=== PATIENT | male | born 1935 | race Caucasian/White ===

== ENCOUNTER 2019-08-19 04:28 | Emergency (ER) | payer MEDICARE, OTHER ==
--- NOTE | 2019-08-19 04:57 | EDM.PDOC ---
ED HPI GENERAL MEDICAL PROBLEM - General Chief Complaint: General Stated Complaint: nosebleed Time Seen by Provider: 08/19/19 04:30 Source of Information: Reports: Patient, RN History Limitations: Reports: Physical Impairment - History of Present Illness INITIAL COMMENTS - FREE TEXT/NARRATIVE: Patient is a 84-year-old who is seen in the ER with nasal bleeding started around 11 PM on 08/18/19 at that time his left nostril was packed with a patent bronchus and he slept for about 2 hours they removed a tampon and he started bleeding so they repacked it and this started to expand but wasn't really controlling the bleeding site to bring him into the ER Onset: Sudden Duration: Hour(s):, Getting Worse Location: Reports: Face (Nose left nostril) Quality: Reports: Ache, Dull Severity: Moderate Improves with: Reports: Other (Nasal packing) Worsens with: Reports: Other (Removal of pack) Context: Reports: Other (Blowing his nose) Associated Symptoms: Reports: No Other Symptoms - Related Data Allergies Allergy/AdvReac Type Severity Reaction Status Date / Time No Known Allergies Allergy Verified 12/10/18 14:48 Home Meds: Home Meds Acetaminophen [Pain Reliever] 500 mg PO Q4HR PRN 08/19/19 [History] Amoxicillin 500 mg PO ASDIRECTED 08/19/19 [History] Aspirin 325 mg PO DAILY 08/19/19 [History] Carbidopa/Levodopa [Carbidopa-Levo ER 25-100] 1 each PO BID 08/19/19 [History] Cyanocobalamin (Vitamin B-12) [Vitamin B-12] 1,000 mcg PO DAILY 08/19/19 [ History] Ferrous Gluconate 240 mg PO ASDIRECTED 08/19/19 [History] Lisinopril 5 mg PO DAILY 08/19/19 [History] Melatonin 3 mg PO BEDTIME 08/19/19 [History] Polyethylene Glycol 3350 [MiraLAX] 17 gm PO DAILY PRN 08/19/19 [History] Potassium Chloride 20 meq PO DAILY 08/19/19 [History] Pyridoxine HCl [Vitamin B-6] 100 mg PO DAILY 08/19/19 [History] Ubidecarenone [Coq-10] 100 mg PO DAILY 08/19/19 [History] atorvaSTATin Calcium [Lipitor] 20 mg PO DAILY 08/19/19 [History] ED ROS GENERAL - Review of Systems Review Of Systems: See Below Constitutional: Reports: No Symptoms HEENT: Reports: Nosebleed, Nose Pain Respiratory: Reports: No Symptoms Cardiovascular: Reports: No Symptoms Endocrine: Reports: No Symptoms GI/Abdominal: Reports: No Symptoms : Reports: No Symptoms Musculoskeletal: Reports: No Symptoms Skin: Reports: No Symptoms Neurological: Reports: No Symptoms ED EXAM, GENERAL - Physical Exam Exam: See Below Exam Limited By: Physical Impairment (Parkinson's disease) General Appearance: Alert, WD/WN, Anxious, Mild Distress Ears: Normal External Exam, Normal Canal, Hearing Grossly Normal, Normal TMs Ear Exam: Bilateral Ear: Auricle Normal, Canal Normal, TM normal Nose: Other (Nasal bleeding left nostril) Throat/Mouth: Normal Inspection, Normal Lips, Normal Teeth, Normal Gums, Normal Oropharynx, Normal Voice, No Airway Compromise Head: Atraumatic, Normocephalic Neck: Normal Inspection, Supple, Non-Tender, Full Range of Motion Respiratory/Chest: Decreased Breath Sounds Cardiovascular: Normal Peripheral Pulses, Regular Rate, Rhythm, No Edema, No Gallop, No JVD, No Rub, Systolic Murmur GI/Abdominal: Normal Bowel Sounds, Soft, Non-Tender, No Organomegaly, No Distention, No Abnormal Bruit, No Mass Back Exam: Normal Inspection, Full Range of Motion, NT Neurological: Normal Cognition, Abnormal Gait (Parkinson's gait) Psychiatric: Normal Affect, Normal Mood Skin Exam: Warm, Dry, Intact, Normal Color, No Rash Lymphatic: No Adenopathy Course - Orders/Labs/Meds Orders: Active Orders 24 hr Category Date Time Status CBC WITH AUTO DIFF [HEME] Stat Lab 08/19/19 04:47 Ordered CMP [COMPREHENSIVE METABOLIC PN,CMP] [CHEM] Stat Lab 08/19/19 04:46 Ordered INR,PT,PROTHROMBIN TIME [COAG] Stat Lab 08/19/19 04:47 Ordered INR,PT,PROTHROMBIN TIME [COAG] Stat Lab 08/19/19 04:48 Stop Req Departure - Departure Time of Disposition: 05:06 Disposition: Home, Self-Care 01 Condition: Fair Clinical Impression: Bleeding from the nose - Discharge Information *PRESCRIPTION DRUG MONITORING PROGRAM REVIEWED*: No *COPY OF PRESCRIPTION DRUG MONITORING REPORT IN PATIENT SOPHIE: No Referrals: Kathy Ibrahim PA-C [Primary Care Provider] - Care Plan Goals: At this time we removed the pack and placed a Rhino Rocket patient tolerated well inflated bleeding controlled at this time we will leave the Rhino Rocket for about 24 hours then remove it and if bleeding bleeding start is to examine him and cauterize the bleed patient is to follow-up with Dr. beltran tomorrow - My Orders Last 24 Hours: My Active Orders 08/19/19 04:46 CMP [COMPREHENSIVE METABOLIC PN,CMP] [CHEM] Stat 08/19/19 04:47 CBC WITH AUTO DIFF [HEME] Stat INR,PT,PROTHROMBIN TIME [COAG] Stat 08/19/19 04:48 INR,PT,PROTHROMBIN TIME [COAG] Stat - Assessment/Plan Last 24 Hours: My Active Orders 08/19/19 04:46 CMP [COMPREHENSIVE METABOLIC PN,CMP] [CHEM] Stat 08/19/19 04:47 CBC WITH AUTO DIFF [HEME] Stat INR,PT,PROTHROMBIN TIME [COAG] Stat 08/19/19 04:48 INR,PT,PROTHROMBIN TIME [COAG] Stat
[2019-08-19 05:10] LABS: CHLORIDE,CL 106 mmol/L (98-107); SODIUM,NA 142 mmol/L (136-145)
== END 2019-08-19 06:10 | disposition home or self-care (01) ==
LOC: LL.ED 04:28
DX: R04.0 Epistaxis (principal); Z79.82 Long term (current) use of aspirin; Z79.899 Other long term (current) drug therapy
CPT/HCPCS: 30903; 36415; 80053; 85025; 85610; 99283-25

== ENCOUNTER 2020-06-12 02:48 | Emergency (ER) | payer MEDICARE, OTHER ==
--- NOTE | 2020-06-12 03:32 | EDM.PDOC ---
ED HPI GENERAL MEDICAL PROBLEM - General Chief Complaint: General Stated Complaint: fall, right shoulder pain Time Seen by Provider: 06/12/20 03:10 Source of Information: Reports: Patient History Limitations: Reports: No Limitations - History of Present Illness INITIAL COMMENTS - FREE TEXT/NARRATIVE: He was seen in the emergency department after a fall in his home. He states he walks with the help of furniture and slipped and fell, landing on his right side. Injury was about 1 hour prior to arrival. He did hit his head and had some bleeding from the right forehead which was closed with Steri-Strips at the [facility]. He denies any loss of consciousness. No dizziness or lightheadedness. No changes in his vision. No nausea or vomiting. He is complaining of 6/10 pain in the anterior aspect of his right shoulder. Increased pain with movement of the right arm. Pain is mainly in the anterior aspect of the shoulder. No pain radiating down the arm. No numbness or tingling in the fingers. He had rotator cuff surgery on that shoulder about 3 years ago. He is also complaining of pain in the right hip, more in the lateral aspect. Increased pain with weightbearing but he is able to bear weight. No pain radiating down the leg. No pain in the anterior hip or groin. He denies any other injury. right shoulder Pain Score (Numeric/FACES): 6 - Related Data Allergies Allergy/AdvReac Type Severity Reaction Status Date / Time No Known Allergies Allergy Verified 06/12/20 02:49 Home Meds: Home Meds Acetaminophen [Pain Reliever] 500 mg PO Q4HR PRN 08/19/19 [History] Amoxicillin 500 mg PO ASDIRECTED 08/19/19 [History] Aspirin 325 mg PO DAILY 08/19/19 [History] Carbidopa/Levodopa [Carbidopa-Levo ER 25-100] 1 each PO BID 08/19/19 [History] Cyanocobalamin (Vitamin B-12) [Vitamin B-12] 1,000 mcg PO DAILY 08/19/19 [History] Ferrous Gluconate 240 mg PO ASDIRECTED 08/19/19 [History] Melatonin 3 mg PO BEDTIME 08/19/19 [History] Potassium Chloride 20 meq PO DAILY 08/19/19 [History] Pyridoxine HCl (Vitamin B6) [Vitamin B-6] 100 mg PO DAILY 08/19/19 [History] Ubidecarenone [Coq-10] 100 mg PO DAILY 08/19/19 [History] atorvaSTATin Calcium [Lipitor] 20 mg PO DAILY 08/19/19 [History] lisinopriL [Lisinopril] 5 mg PO DAILY 08/19/19 [History] polyethylene glycoL 3350 [MiraLAX] 17 gm PO DAILY PRN 08/19/19 [History] Clotrimazole [Lotrimin AF 1% Crm] 1 applic TOP BID 06/12/20 [History] Ipratropium/Albuterol Sulfate [Iprat-Albut 0.5-3(2.5) mg/3 ml] 3 ml IH Q6HR PRN 06/12/20 [History] Non-Formulary Medication [NF Drug] 1 cap PO TID 06/12/20 [History] Past Medical History HEENT History: Reports: Allergic Rhinitis, Cataract, Epistaxis Cardiovascular History: Reports: Angina, CAD, Heart Murmur, Hypertension, [place] Musculoskeletal History: Reports: Arthritis Neurological History: Reports: Parkinson's Psychiatric History: Reports: Anxiety Hematologic History: Reports: Anemia Other Hematologic History: Thrombocytopenia - Past Surgical History Musculoskeletal Surgical History: Reports: Knee Replacement, Shoulder Surgery Other Musculoskeletal Surgeries/Procedures:: right rotator cuff, left knee replacement Social & Family History - Tobacco Use Smoking Status *Q: Never Smoker - Caffeine Use Caffeine Use: Reports: Coffee - Recreational Drug Use Recreational Drug Use: No ED ROS GENERAL - Review of Systems Review Of Systems: See Below Constitutional: Denies: Fever, Chills HEENT: Denies: Ear Discharge, Ear Pain, Eye Pain, Nosebleed, Sinus Problem, Throat Pain, Vision Change Respiratory: Denies: Shortness of Breath, Cough Cardiovascular: Denies: Chest Pain, Lightheadedness, Palpitations Endocrine: Denies: Fatigue GI/Abdominal: Denies: Abdominal Pain, Nausea, Vomiting Musculoskeletal: Reports: Shoulder Pain (right), Other (right hip pain). Denies: Neck Pain Skin: Reports: Lesions (laceration right eyebrow) Neurological: Denies: Confusion, Dizziness, Headache, Numbness, Paresthesia, Tingling, Change in Speech Psychiatric: Denies: Agitation, Anxiety, Confusion Hematologic/Lymphatic: Denies: Anemia Immunologic: Reports: No Symptoms ED EXAM, GENERAL - Physical Exam Exam: See Below Exam Limited By: No Limitations General Appearance: Alert, WD/WN, No Apparent Distress Eye Exam: Bilateral Eye: Normal Inspection, PERRL Ears: Normal External Exam, Normal Canal, Hearing Grossly Normal, Normal TMs Nose: Normal Inspection, No Blood Head: Normocephalic, Other (Superficial laceration over the right eyebrow which is been closed with Steri-Strips. No surrounding swelling or significant tenderness. Otherwise atraumatic.) Neck: Normal Inspection, Non-Tender Extremities: Other (Right shoulder: No swelling or deformity. No discoloration. Moderate tenderness over the anterior aspect. No other tenderness. No palpable defect. Passive range of motion 0 to 150 degrees in flexion and abduction with pain in the extremes. Negative impingement. Mild pain but no real weakness with resisted external rotation. Left shoulder: No swelling, deformity or discoloration. No tenderness. Range of motion 0 to 160 degrees without pain. Negative impingement. Right hip: No swelling or deformity. Mild tenderness in the lateral aspect. No other tenderness. Decreased range of motion in all directions but no significant pain with movement. Left hip: No swelling or deformity. No tenderness. Decreased range of motion in all directions but no pain with movement.) Neurological: Alert, Oriented, CN II-XII Intact, No Motor/Sensory Deficits Psychiatric: Normal Affect, Normal Mood Skin Exam: Other (Laceration right eyebrow closed with Steri-Strips. No bleeding.) Course - Vital Signs Last Recorded V/S: Last Vital Signs Temp 36.1 C 06/12/20 02:50 Pulse 55 L 06/12/20 02:50 Resp 18 06/12/20 02:50 BP 148/66 H 06/12/20 02:50 Pulse Ox 100 06/12/20 02:50 - Orders/Labs/Meds Orders: Active Orders 24 hr Category Date Time Status Hip Min 2V or 3V w Pelvis Rt [CR] Stat Exams 06/12/20 03:17 Ordered Shoulder Comp Rt [CR] Stat Exams 06/12/20 03:16 Ordered - Radiology Interpretation Free Text/Narrative:: 3 views of the right shoulder. Findings: Status post total shoulder replacement. Components are well seated in good position. No fracture or other acute process. 3 views of the right hip: Findings: Significant degenerative changes with joint space narrowing. No fractures or other acute process. Departure - Departure Time of Disposition: 04:10 Disposition: DC/Tfer to [facility] Condition: Good Clinical Impression: Contusion of shoulder, right, Contusion of hip, right, Laceration of eyebrow, right - Discharge Information *PRESCRIPTION DRUG MONITORING PROGRAM REVIEWED*: No *COPY OF PRESCRIPTION DRUG MONITORING REPORT IN PATIENT SOPHIE: No Instructions: Laceration Care, Adult, How to Use Cold Therapy, [id number] Referrals: Kathy Ibrahim PA-C [Primary Care Provider] - Additional Instructions: Apply ice to the shoulder and hip for 15 minutes 3-4 times daily. Frequent nonpainful range of motion in the shoulder and hip. Monitor for any signs of infection around the laceration. Monitor for signs of closed head injury which were explained. Tylenol as needed for pain. Follow-up as needed. Sepsis Event Note (ED) - Evaluation Sepsis Screening Result: No Definite Risk - Focused Exam Vital Signs: Vital Signs Temp Pulse Resp BP Pulse Ox 06/12/20 02:50 36.1 C 55 L 18 148/66 H 100 - My Orders Last 24 Hours: My Active Orders 06/12/20 03:16 Shoulder Comp Rt [CR] Stat 06/12/20 03:17 Hip Min 2V or 3V w Pelvis Rt [CR] Stat - Assessment/Plan Last 24 Hours: My Active Orders 06/12/20 03:16 Shoulder Comp Rt [CR] Stat 06/12/20 03:17 Hip Min 2V or 3V w Pelvis Rt [CR] Stat
== END 2020-06-12 04:33 ==
LOC: LL.ED 02:48
DX: S01.111A Laceration without foreign body of right eyelid and periocular area, initial encounter (principal); S40.011A Contusion of right shoulder, initial encounter; S70.01XA Contusion of right hip, initial encounter; I10 Essential (primary) hypertension; I25.10 Atherosclerotic heart disease of native coronary artery without angina pectoris; I25.2 Old myocardial infarction; M19.90 Unspecified osteoarthritis, unspecified site; F41.9 Anxiety disorder, unspecified; D69.6 Thrombocytopenia, unspecified; Z79.82 Long term (current) use of aspirin; Z79.899 Other long term (current) drug therapy; W01.10XA Fall on same level from slipping, tripping and stumbling with subsequent striking against unspecified object, initial encounter; Y92.009 Unspecified place in unspecified non-institutional (private) residence as the place of occurrence of the external cause
CPT/HCPCS: 73030-RT; 99283-25

== ENCOUNTER 2020-07-12 07:04 | Emergency (ER) | payer MEDICARE, OTHER ==
[2020-07-12] MEDS ORDERED: Phenylephrine 0.5% Nasal Spray 15 ML Bot NASBOTH ONE (07:40)
[2020-07-12] MEDS ORDERED: cloNIDine 0.1 MG Tab PO ONE (08:03)
--- NOTE | 2020-07-12 09:18 | EDM.PDOC ---
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 - Related Data Allergies Allergy/AdvReac Type Severity Reaction Status Date / Time No Known Allergies Allergy Verified 07/12/20 07:20 Home Meds: Home Meds Acetaminophen [Pain Reliever] 500 mg PO Q4HR PRN 08/19/19 [History] Amoxicillin 500 mg PO ASDIRECTED 08/19/19 [History] Aspirin 325 mg PO DAILY 08/19/19 [History] Carbidopa/Levodopa [Carbidopa-Levo ER 25-100] 1 each PO BID 08/19/19 [History] Cyanocobalamin (Vitamin B-12) [Vitamin B-12] 1,000 mcg PO DAILY 08/19/19 [History] Ferrous Gluconate 240 mg PO Q2D 08/19/19 [History] Melatonin 3 mg PO BEDTIME 08/19/19 [History] Potassium Chloride 20 meq PO DAILY 08/19/19 [History] Pyridoxine HCl (Vitamin B6) [Vitamin B-6] 100 mg PO DAILY 08/19/19 [History] Ubidecarenone [Coq-10] 100 mg PO DAILY 08/19/19 [History] atorvaSTATin Calcium [Lipitor] 20 mg PO DAILY 08/19/19 [History] lisinopriL [Lisinopril] 5 mg PO DAILY 08/19/19 [History] polyethylene glycoL 3350 [MiraLAX] 17 gm PO DAILY PRN 08/19/19 [History] Ipratropium/Albuterol Sulfate [Iprat-Albut 0.5-3(2.5) mg/3 ml] 3 ml IH Q6HR PRN 06/12/20 [History] Non-Formulary Medication [NF Drug] 1 cap PO TID 06/12/20 [History] Past Medical History HEENT History: Reports: Allergic Rhinitis, Cataract, Epistaxis, Other (See Below) Other HEENT History: hx of nose packing approximately 6 mths ago and H/O cautery x 2. Cardiovascular History: Reports: Angina, CAD, Heart Murmur, Hypertension, [place] Musculoskeletal History: Reports: Arthritis Neurological History: Reports: Parkinson's Psychiatric History: Reports: Anxiety Hematologic History: Reports: Anemia Other Hematologic History: Thrombocytopenia - Past Surgical History Musculoskeletal Surgical History: Reports: Knee Replacement, Shoulder Surgery Other Musculoskeletal Surgeries/Procedures:: right rotator cuff, left knee replacement Social & Family History - Tobacco Use Smoking Status *Q: Never Smoker Second Hand Smoke Exposure: No - Caffeine Use Caffeine Use: Reports: Coffee - Recreational Drug Use Recreational Drug Use: No ED ROS ENT - Review of Systems Review Of Systems: See Below HEENT: Reports: Other (Nose bleed) Respiratory: Reports: No Symptoms Cardiovascular: Reports: Chest Pain ED EXAM, ENT - Physical Exam Exam: See Below Nose: Other (Pt with minimal bleeding both nares) Mouth/Throat: Normal Inspection Course - Vital Signs Last Recorded V/S: Last Vital Signs Temp 96.9 F 07/12/20 07:04 Pulse 53 L 07/12/20 08:45 Resp 16 07/12/20 08:45 BP 157/89 H 07/12/20 08:45 Pulse Ox 98 07/12/20 08:45 - Orders/Labs/Meds Meds: Medications Discontinued Medications Generic Name Dose Route Start Last Admin Trade Name Tan PRN Reason Stop Dose Admin Clonidine HCl 0.1 mg 07/12/20 08:03 07/12/20 08:10 Catapres PO 07/12/20 08:04 0.1 mg ONETIME ONE Administration Phenylephrine HCl 0.5 ml 07/12/20 07:40 07/12/20 07:49 Ronnie-Synephrine 0.5% Regular Nasal [place] NASBOTH 07/12/20 07:41 0.5 ml ONETIME ONE Administration - Re-Assessments/Exams Free Text/Narrative Re-Assessment/Exam: 07/12/20 09:16 Pt given Ronnie-synephrine with resolution of bleeding Pt given Clonidine 0.1 mg PO in ER Departure - Departure Time of Disposition: 09:15 Disposition: Home, Self-Care 01 Clinical Impression: Bleeding nose - Discharge Information *PRESCRIPTION DRUG MONITORING PROGRAM REVIEWED*: Not Applicable *COPY OF PRESCRIPTION DRUG MONITORING REPORT IN PATIENT SOPHIE: Not Applicable Instructions: Nosebleed, [id number] Referrals: Kathy Ibrahim PA-C [Primary Care Provider] - Forms: ED Department Discharge Additional Instructions: HOLD Aspirin for 2 days then resume on 07/14/20 as ordered. Ronnie Sunephrine Nasal spray 2 sprays each nostril as needed if nosebleed occurs. No hot liquids today, encourage cool drinks. Encourage mouth breathing today. No blowing nose today or tomorrow. Reschedule dentist appointment that was today. Return to the ER/Clinic if condition worsens. Sepsis Event Note (ED) - Evaluation Sepsis Screening Result: No Definite Risk - Focused Exam Vital Signs: Vital Signs Temp Pulse Resp BP BP Pulse Ox 07/12/20 08:45 53 L 16 157/89 H 98 07/12/20 08:30 54 L 16 154/91 H 97 07/12/20 08:15 58 L 16 159/103 H 97 07/12/20 08:10 169/105 H 07/12/20 07:54 57 L 16 162/95 H 98 07/12/20 07:40 58 L 16 166/95 H 100 07/12/20 07:25 58 L 18 157/90 H 100 07/12/20 07:04 96.9 F 60 18 154/95 H 99
== END 2020-07-12 09:35 | disposition home or self-care (01) ==
LOC: LL.ED 07:04 → SUPCPDRO 07:04 → LL.ED 09:35
DX: R04.0 Epistaxis (principal); I10 Essential (primary) hypertension; I25.2 Old myocardial infarction; I25.10 Atherosclerotic heart disease of native coronary artery without angina pectoris; Z79.82 Long term (current) use of aspirin; Z79.899 Other long term (current) drug therapy
CPT/HCPCS: 99282; 99283; A9270-GY

== ENCOUNTER 2021-02-25 11:11 | Inpatient (IN) | payer MEDICARE, OTHER, MEDICAID ==
[2021-02-25] MEDS ORDERED: Famotidine 20 MG/2 ML SDV IVPUSH ONE (11:13)
--- NOTE | 2021-02-25 11:13 | EDM.PDOC ---
ED HPI GENERAL MEDICAL PROBLEM - General Chief Complaint: Cardiovascular Problem Stated Complaint: unresponsive Time Seen by Provider: 02/25/21 11:13 Source of Information: Reports: Patient, EMS, Retirement Records, Old Records ([facility] EMR. No paper hospital chart available.). Denies: EMS Notes Reviewed (Not available at time of dictation) History Limitations: Reports: Altered Mental Status - History of Present Illness INITIAL COMMENTS - FREE TEXT/NARRATIVE: The patient was brought to the emergency room via ambulance with maternity floor supervisor accompaniment with no treatment by the paramedics in route other than a stat Accu-Chek of 136 mg percent at the longterm prior to transfer to this facility. They also did take a 12-lead EKG, which was nonconclusive by their history. The maternity floor supervisor did continue his previous oxygen therapy by mask in route to our emergency room. Patient is an extremely poor historian secondary to his nonresponsiveness and baseline organic brain syndrome with only limited history and records obtained from the longterm. The patient was apparently eating breakfast at about 10:30 AM this morning when he had a sudden onset episode of unresponsiveness with the patient lowered to the floor by the longterm staff resulting in a small laceration of his left elbow, however no history of fall, head injury, seizure activity, urinary/stool incontinence, etc. They were unable to determine any blood pressure or pulse with AED applied with no shock indicated and chest compressions initiated by the longterm staff with pulse present at time of arrival of the paramedics. Initially the patient was unresponsive with exception of painful stimuli with slowly improving responsiveness during transport. No apparent recent history of chest pain, anginal complaints, abdominal pain, nausea/emesis, UTI symptoms, cough, fever, headaches, visual changes, etc., however the patient's mental status and general condition has been progressively declining during the last several weeks secondary to his Parkinson's disease. No apparent pain or discomfort at this time. Onset: Today, Sudden Onset Date: 02/25/21 Onset Time: 10:30 Duration: Improving (Responsiveness), Other (No pain) Severity: Severe (Unresponsiveness) Improves with: Reports: None Worsens with: Reports: None Context: Reports: Other (As above). Denies: Sick Contact, Trauma Associated Symptoms: Reports: Confusion, Malaise, Syncope. Denies: Chest Pain, Cough, Diaphoresis, Fever/Chills, Headaches, Loss of Appetite, Nausea/Vomiting, Rash, Seizure, Shortness of Breath, Weakness Treatments SNAP ATTACHER: Reports: EKG, Oxygen, See EMS Report - Related Data Allergies Allergy/AdvReac Type Severity Reaction Status Date / Time No Known Allergies Allergy Verified 02/25/21 12:24 Home Meds: Home Meds Amoxicillin 500 mg PO ASDIRECTED 08/19/19 [History] Carbidopa/Levodopa [Carbidopa-Levo ER 25-100] 1 each PO TID@08,13,16 08/19/19 [History] Ferrous Gluconate 240 mg PO Q2D 08/19/19 [History] Melatonin 3 mg PO BEDTIME 08/19/19 [History] Potassium Chloride 20 meq PO DAILY 08/19/19 [History] lisinopriL [Lisinopril] 5 mg PO DAILY 08/19/19 [History] polyethylene glycoL 3350 [MiraLAX] 17 gm PO DAILY PRN 08/19/19 [History] Ipratropium/Albuterol Sulfate [Iprat-Albut 0.5-3(2.5) mg/3 ml] 3 ml IH Q6HR PRN 06/12/20 [History] Aspirin [Aspirin EC] 1 tab PO DAILY 02/25/21 [History] Cod Liver Oil 2 cap PO TID 02/25/21 [History] Donepezil HCl 1 tab PO BEDTIME 02/25/21 [History] Furosemide [Lasix] 1 tab PO DAILY 02/25/21 [History] Levothyroxine [Synthroid] 1 tab PO DAILY 02/25/21 [History] Magnesium Oxide 1 tab PO DAILY 02/25/21 [History] Methyl Salicylate/Menthol [Muscle Rub] 1 applic TOP BID 02/25/21 [History] Phenylephrine [Ronnie-Synephrine 0.5% Regular Nasal Conway] 2 spray NASBOTH ASDIRECTED PRN 02/25/21 [History] Sertraline [Zoloft] 1 tab PO DAILY 02/25/21 [History] Sodium Chloride/Aloe Vera [Minier Saline Nasal Gel Conway] 2 spray NASBOTH BID PRN 02/25/21 [History] Ubidecarenone [Coenzyme Q-10] 1 cap PO DAILY 02/25/21 [History] Past Medical History HEENT History: Reports: Allergic Rhinitis, Cataract, Epistaxis, Glaucoma, Other (See Below) Other HEENT History: Bilateral upper lid ptosis. History of recurrent epistaxis requiring cauterization and nasal packing. Cardiovascular History: Reports: Angina, CAD, Heart Murmur, High Cholesterol, Hypertension, MA, PVD, Other (See Below) Other Cardiovascular History: Left carotid artery stenosis/occlusion Respiratory History: Reports: COPD, Intubation, Previous, Sleep Apnea. Denies: Intubation, Difficult Gastrointestinal History: Reports: Chronic Constipation Genitourinary History: Reports: BPH, Urinary Incontinence Musculoskeletal History: Reports: Arthritis Neurological History: Reports: Parkinson's, Other (See Below). Denies: Seizure Other Neuro History: Generalized cerebral atrophy with mild chronic small vessel disease. Progressive parkinsonian dementia with hallucinations and amnesia. Insomnia. Psychiatric History: Reports: Anxiety, Dementia, Depression, Hallucinations, Suicide Attempt, Suicidal Ideation, Other (See Below) Other Psychiatric History: Progressive probable Parkinson's dementia. Endocrine/Metabolic History: Reports: Diabetes, Type II, Hypokalemia, Hypomagnesemia, Hypothyroidism, Other (See Below) Other Endocrine/Metabolic History: Hyperglycemia. Hematologic History: Reports: Anemia, B12 Deficiency, Idiopathic Thrombocytopenia, Iron Deficiency Oncologic (Cancer) History: Reports: Other (See Below) Other Oncologic History: Skin cancer of unknown type. Dermatologic History: Reports: Other (See Below) Other Dermatologic History: Rosacea. Chronic ecchymosis secondary to ITP. - Past Surgical History HEENT Surgical History: Reports: Oral Surgery, Other (See Below) Other HEENT Surgeries/Procedures: Complete teeth extraction Cardiovascular Surgical History: Reports: Coronary Artery Bypass, Coronary Artery Stent, Percutaneous Transluminal Angioplasty Musculoskeletal Surgical History: Reports: Knee Replacement, Shoulder Replacement, Shoulder Surgery Other Musculoskeletal Surgeries/Procedures:: Right rotator cuff repair with subsequent right shoulder arthroplasty. Left TKA. - Past Imaging History Past Imaging History: Reports: CAT Scan (Head on 01/28/2021.) Social & Family History - Family History Family Medical History: Unobtainable - Tobacco Use Tobacco Use Status *Q: Never Tobacco User Tobacco Use Within Last Twelve Months: No Used Tobacco, but Quit: No Smoking Cessation Information Provided To Patient: No Second Hand Smoke Exposure: No Second Hand Smoke Education Provided: No - Caffeine Use Caffeine Use: Reports: Coffee - Living Situation & Occupation Living situation: Reports: ( also at [facility] in [place]), Extended Care Facility ([facility] in [facility]) Occupation: Retired ED ROS GENERAL - Review of Systems Review Of Systems: Unable To Obtain Reason Not Obtained: As per HPI ED EXAM, GENERAL - Physical Exam Exam: See Below Exam Limited By: Altered Mental Status General Appearance: Lethargic, Other (Slowly improved responsiveness to verbal stimuli however does not completely follow instructions of opening his eyes) Eye Exam: Bilateral Eye: EOMI (Grossly normal with no deviation), Normal Fundi (Exam difficult secondary to miosis), PERRL (Moderate to severe myosis), Other (Mild bilateral upper lid ptosis) Ears: Normal External Exam, Normal Canal, Hearing Grossly Normal (Difficult to assess secondary to unresponsiveness), Normal TMs, Other (Impacted cerumen right EAC) Nose: Normal Inspection, Normal Mucosa, No Blood Throat/Mouth: Normal Lips, Normal Gums, Normal Oropharynx, Normal Voice, No Airway Compromise, Other (No tongue injury/biting). No: Normal Teeth (Complete dentures uppers and lowers), Dysphagia, Perioral Cyanosis Head: Atraumatic, Normocephalic. No: Facial Swelling, Facial Tenderness, Sinus Tenderness Neck: Supple, Non-Tender, Full Range of Motion, Carotid Bruit (Moderate bilateral carotid bruits). No: Lymphadenopathy (L), Lymphadenopathy (R), Thyromegaly Respiratory/Chest: No Respiratory Distress, No Accessory Muscle Use, Chest Non- Tender, Rales (Moderate diffuse bilateral). No: Rhonchi, Wheezing, Pleural Rub, Retractions Cardiovascular: Normal Peripheral Pulses, Regular Rate, Rhythm, No Edema, No Gallop, No JVD, No Murmur, No Rub, Bradycardia (Occasional). No: Gallop/S3, Gallop/S4, Extra Beats (None at time of exam), Friction Rub Peripheral Pulses: 2+: Brachial (L), Brachial (R), Dorsalis Pedis (L), Dorsalis Pedis (R) GI/Abdominal: Normal Bowel Sounds, Soft, Non-Tender, No Organomegaly, No Distention, No Abnormal Bruit, No Mass, Pelvis Stable. No: Guarding (Male) Exam: Deferred Rectal (Males) Exam: Deferred Back Exam: Normal Inspection, Full Range of Motion. No: CVA Tenderness (L), CVA Tenderness (R), Muscle Spasm Extremities: Normal Range of Motion, Non-Tender, No Pedal Edema, Normal Capillary Refill, Other (Small 1-2 cm laceration over the left olecranon with no evidence of fracture, dislocation, etc.). No: Pedal Edema, Steven's Sign Neurological: Unresponsive (Slowly improving as above), Other (Negative Babinski's. Patient unable to perform neurological exam. Moderate resting tremor with severe rigidity and cogwheeling) Psychiatric: Other (Unresponsive as above) Skin Exam: Ecchymosis (Multiple on all extremities), Petechiae (Occasional), Wound/Incision (Left elbow laceration as above), Other (Multiple areas of probable actinic keratosis on his arms bilaterally, facial region, auricles, etc.) Lymphatic: No Adenopathy #1 Interpretation EKG Date: 02/25/21 Time: 11:19 Rhythm: NSR Rate (Beats/Min): 61 [place]: LAD-Left [place] Deviation P-Wave: Enlarged (Moderate diffuse biphasic) QRS: RBBB (0.19 seconds) ST-T: Other (T wave inversions in leads V1 through V4) QT: Normal WV/PQ Interval: 0.25 seconds representing a first-degree AV block Comparison: NA - No Prior EKG EKG Interpretation Comments: 1. Anterior wall cardiac ischemia 2. Complete right bundle branch block 3. First-degree AV block 4. Left atrial enlargement Course - Vital Signs Last Recorded V/S: Last Vital Signs Temp 35.3 C L 02/25/21 13:59 Pulse 50 L 02/25/21 13:59 Resp 14 02/25/21 13:59 BP 123/77 02/25/21 13:59 Pulse Ox 99 02/25/21 13:59 Vital Signs - 24 hr 02/25/21 02/25/21 02/25/21 11:15 11:30 11:45 Temperature [ 35.3 C L Temporal] Pulse, 60 58 L 59 L Peripheral [ Right Pulse Oximetry] Respiratory 14 14 14 Rate Blood Pressure 119/80 121/77 128/77 [Left Upper Arm ] O2 Sat by Pulse 100 99 99 Oximetry 02/25/21 02/25/21 02/25/21 12:00 12:30 13:59 Temperature [ 35.3 C L Temporal] Pulse, 59 L 58 L 50 L Peripheral [ Right Pulse Oximetry] Respiratory 14 14 14 Rate Blood Pressure 124/73 107/65 123/77 [Left Upper Arm ] O2 Sat by Pulse 99 98 99 Oximetry - Orders/Labs/Meds Orders: Active Orders 24 hr Category Date Time Status Cardiac Monitoring [RC] . DIRECTED Care 02/25/21 11:13 Active EKG Documentation Completion [RC] ASDIRECTED Care 02/25/21 11:13 Active Oxygen Therapy, ED [RC] CONTINUOUS Care 02/25/21 11:13 Active Peripheral IV Care [RC] . DIRECTED Care 02/25/21 11:13 Active Peripheral IV Care [RC] . DIRECTED Care 02/25/21 11:20 Active Pulse Oximetry [RC] CONTINUOUS Care 02/25/21 11:13 Active Up With Assistance [RC] PFP Care 02/25/21 11:13 Active Vital Signs [RC] PFP Care 02/25/21 11:13 Active Nothing per Oral Now Diet [DIET] Diet 02/25/21 Breakfast Active Chest 1V Frontal [CR] Stat Exams 02/25/21 11:13 Taken Chest PE [Ang Chest] [CT] Stat Exams 02/25/21 12:11 Taken Head wo Cont [CT] Stat Exams 02/25/21 11:21 Taken CULTURE BLOOD [BC] Stat Lab 02/25/21 11:30 Received CULTURE BLOOD [BC] Stat Lab 02/25/21 13:26 Received Sodium Chloride 0.9% [Saline Flush] Med 02/25/21 11:13 Active 10 ml FLUSH ASDIRECTED PRN Sodium Chloride 0.9% [Saline Flush] Med 02/25/21 11:19 Active 10 ml FLUSH ASDIRECTED PRN Blood Culture x2 Reflex Set [OM.PC] Urgent Oth 02/25/21 13:17 Ordered Obtain Past Medical Record [OM.PC] Urgent Oth 02/25/21 11:13 Active Peripheral IV Insertion Adult [OM.PC] Routine Oth 02/25/21 11:19 Ordered Peripheral IV Insertion Adult [OM.PC] Stat Oth 02/25/21 11:13 Ordered Resuscitation Status Stat Resus Stat 02/25/21 12:25 Ordered Medication Orders Sodium Chloride (Sodium Chloride 0.9% 10 Ml Syringe) 10 ml FLUSH ASDIRECTED PRN PRN Reason: Keep Vein Open Last Admin: 02/25/21 12:42 Dose: 10 ml Documented by: ARCELIA Sodium Chloride (Sodium Chloride 0.9% 10 Ml Syringe) 10 ml FLUSH ASDIRECTED PRN PRN Reason: Keep Vein Open Labs: Laboratory Tests 02/25/21 02/25/21 02/25/21 Range/Units 11:30 11:30 11:30 WBC 3.7 L (4.0-10.2) K/uL RBC 3.99 L (4.33-5.41) M/uL Hgb 11.8 L (13.1-16.8) g/dL Hct 37.1 L (39.0-49.0) % MCV 93.0 D (84.0-98.0) fL MCH 29.6 (28.2-33.3) pg MCHC 31.8 (31.7-36.0) g/dL RDW 16.7 H (11.2-14.1) % Plt Count 79 L (150-350) K/uL Neut % (Auto) 77.2 (45.0-80.0) % Lymph % (Auto) 14.1 (10.0-50.0) % Woodruff % (Auto) 4.9 (2.0-14.0) % Eos % (Auto) 3.5 (0.0-5.0) % Baso % (Auto) 0.3 (0.0-2.0) % Neut # (Auto) 2.85 (1.40-7.00) K/uL Lymph # (Auto) 0.52 (0.50-3.50) K/uL Woodruff # (Auto) 0.18 (0.00-1.00) K/uL Eos # (Auto) 0.13 (0.00-0.50) K/uL Baso # (Auto) 0.01 (0.00-0.20) K/uL PT 11.7 (9.5-12.0) SEC INR 1.2 APTT 28.1 (24.5-32.8) SEC D-Dimer, Quantitative 2670 H (0-400) ng/mL Sodium (136-145) mmol/L Potassium (3.5-5.1) mmol/L Chloride (98-107) mmol/L Carbon Dioxide (21.0-32.0) mmol/L BUN (7-18) mg/dL Creatinine (0.51-1.17) mg/dL Est Cr Clr Drug Dosing Estimated GFR (MDRD) mL/min Glucose (70-99) mg/dL Lactic Acid (0.4-2.0) mmol/L Uric Acid (2.6-7.2) mg/dL Calcium (8.5-10.1) mg/dL Magnesium (1.8-2.4) mg/dL Total Bilirubin (0.2-1.0) mg/dL AST (15-37) U/L ALT (12-78) U/L Alkaline Phosphatase (46-116) IU/L Creatine Kinase (26-308) U/L Creatine Kinase Index (0.0-2.5) % CK-MB (CK-2) (0.00-3.60) ng/mL Troponin I (0.000-0.056) ng/mL NT-Pro-B Natriuret Pep (0-125) pg/mL Total Protein (6.4-8.2) g/dL Albumin (3.4-5.0) g/dL TSH, Ultra Sensitive (0.358-3.740) mIU/mL SARS-CoV-2 RNA (MERLYN) (NEGATIVE) 02/25/21 02/25/21 02/25/21 Range/Units 11:30 11:30 11:30 WBC (4.0-10.2) K/uL RBC (4.33-5.41) M/uL Hgb (13.1-16.8) g/dL Hct (39.0-49.0) % MCV (84.0-98.0) fL MCH (28.2-33.3) pg MCHC (31.7-36.0) g/dL RDW (11.2-14.1) % Plt Count (150-350) K/uL Neut % (Auto) (45.0-80.0) % Lymph % (Auto) (10.0-50.0) % Woodruff % (Auto) (2.0-14.0) % Eos % (Auto) (0.0-5.0) % Baso % (Auto) (0.0-2.0) % Neut # (Auto) (1.40-7.00) K/uL Lymph # (Auto) (0.50-3.50) K/uL Woodruff # (Auto) (0.00-1.00) K/uL Eos # (Auto) (0.00-0.50) K/uL Baso # (Auto) (0.00-0.20) K/uL PT (9.5-12.0) SEC INR APTT (24.5-32.8) SEC D-Dimer, Quantitative (0-400) ng/mL Sodium 139 (136-145) mmol/L Potassium 3.8 (3.5-5.1) mmol/L Chloride 102 (98-107) mmol/L Carbon Dioxide 24.9 (21.0-32.0) mmol/L BUN 35 H (7-18) mg/dL Creatinine 1.03 (0.51-1.17) mg/dL Est Cr Clr Drug Dosing TNP Estimated GFR (MDRD) > 60 mL/min Glucose 139 H (70-99) mg/dL Lactic Acid 6.6 H (0.4-2.0) mmol/L Uric Acid 6.1 (2.6-7.2) mg/dL Calcium 9.3 (8.5-10.1) mg/dL Magnesium 1.9 (1.8-2.4) mg/dL Total Bilirubin 0.8 (0.2-1.0) mg/dL AST 77 H (15-37) U/L ALT 31 (12-78) U/L Alkaline Phosphatase 289 H (46-116) IU/L Creatine Kinase 41 (26-308) U/L Creatine Kinase Index 8.3 H (0.0-2.5) % CK-MB (CK-2) 3.40 (0.00-3.60) ng/mL Troponin I 0.040 (0.000-0.056) ng/mL NT-Pro-B Natriuret Pep 5331 H (0-125) pg/mL Total Protein 7.5 (6.4-8.2) g/dL Albumin 2.7 L (3.4-5.0) g/dL TSH, Ultra Sensitive 5.164 H (0.358-3.740) mIU/mL SARS-CoV-2 RNA (MERLYN) Negative (NEGATIVE) Meds: Medications Generic Name Dose Route Start Last Admin Trade Name Freq PRN Reason Stop Dose Admin Sodium Chloride 10 ml 02/25/21 11:13 02/25/21 12:42 Sodium Chloride 0.9% 10 Ml Syringe FLUSH 10 ml ASDIRECTED PRN Administration Keep Vein Open Sodium Chloride 10 ml 02/25/21 11:19 Sodium Chloride 0.9% 10 Ml Syringe FLUSH ASDIRECTED PRN Keep Vein Open Discontinued Medications Generic Name Dose Route Start Last Admin Trade Name Michaelq PRN Reason Stop Dose Admin Ceftriaxone Sodium 2 gm 02/25/21 13:16 02/25/21 14:14 Ceftriaxone 2 Gm Vial IVPUSH 02/25/21 13:17 2 gm ONETIME ONE Administration Famotidine 40 mg 02/25/21 11:13 02/25/21 11:20 Famotidine 20 Mg/2 Ml Sdv IVPUSH 02/25/21 11:14 40 mg ONETIME ONE Administration Lactated Ringer's 1,000 mls @ 999 mls/hr 02/25/21 13:16 02/25/21 14:15 Ringers, Lactated IV 02/25/21 14:16 999 mls/hr .BOLUS ONE Administration Iopamidol 100 ml 02/25/21 12:30 02/25/21 12:42 Iopamidol 755 Mg/Ml 100 Ml Bottle IVPUSH 02/25/21 12:31 100 ml ONETIME ONE Administration - Radiology Interpretation Free Text/Narrative:: 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 Borderline left upper lobe pulmonary infiltrates with no pneumothorax, etc. Borderline pleural effusions noted, left greater than right. Telephone consultation at 12:04 PM with the radiology department at [facility]. Preliminary verbal report of noncontrast CT scan of the head showed no evidence of acute changes, including cerebral hemorrhage, CVA, etc. Telephone consultation at 1:09 PM with the radiology department at [facility]. Preliminary verbal report of CTA of the chest using PE protocol was negative for PE with incidental finding of probable CHF with small left pleural effusion and probable left upper lobe pulmonary infiltrates. CT Results Date: 02/25/21 CT Results Time: 12:04 Departure - Departure Time of Disposition: 14:50 Disposition: Admitted As Inpatient 66 Condition: Poor Clinical Impression: D-dimer, elevated, Complete right bundle branch block, Parkinsons disease, Need for comfort care, Chronic ITP (idiopathic thrombocytopenic purpura), Elevated L FTs, Hypothyroidism (acquired), Hypoalbuminemia, PVCs (premature ventricular contractions), First degree AV block, Lactic acid acidosis, Unresponsiveness CHF (congestive heart failure) Qualifiers: Heart failure type: unspecified Heart failure chronicity: acute Qualified Code(s): I50.9 - Heart failure, unspecified Leukopenia Qualifiers: Leukopenia type: neutropenia Neutropenia type: unspecified Qualified Code(s): D70.9 - Neutropenia, unspecified Anemia Qualifiers: Anemia type: unspecified type Qualified Code(s): D64.9 - Anemia, unspecified COPD (chronic obstructive pulmonary disease) Qualifiers: COPD type: COPD with acute lower respiratory infection Qualified Code(s): J44.0 - Chronic obstructive pulmonary disease with (acute) lower respiratory infection Sepsis Event Note (ED) - Focused Exam Vital Signs: Vital Signs Temp Pulse Resp BP Pulse Ox 02/25/21 13:59 35.3 C L 50 L 14 123/77 99 02/25/21 12:30 58 L 14 107/65 98 02/25/21 12:00 59 L 14 124/73 99 02/25/21 11:45 59 L 14 128/77 99 02/25/21 11:30 58 L 14 121/77 99 02/25/21 11:15 35.3 C L 60 14 119/80 100 - Problem List & Annotations (1) Unresponsiveness SNOMED Code(s): 306167870 Code(s): R41.89 - [facility] SYMPTOMS AND SIGNS W COGNITIVE FUNCTIONS AND AWARENESS Status: Acute Priority: High Current Visit: Yes Onset Date: 02/25/21 Annotation/Comment:: Initial telephone consultation at 1:11 PM with [facility]. Subsequent telephone consultation at 1:[address] Luu, who is willing to accept the patient, however he does not feel that they can offer him any advantages and care in their facility secondary to the family's current wishes of comfort care only. Various therapeutic options were discussed with the patient's and his brother, who are now requesting that the patient stay in this facility for comfort care. Period of unresponsiveness of unknown etiology with possible contributing factors, including threatening acute MA with CHF, bradycardia, etc. and additional possible CVA with negative initial CT of the head without contrast as above. Further work-up depending on his clinical course including possible MRI of the brain, which is not available in this facility until 02/28. Prognosis is extremely poor secondary to multiple health issues as above/below. Slow improvement of patient's unresponsiveness during his emergency room care as above with stable vital signs and clinical exam at time of admission. (2) Lactic acid acidosis SNOMED Code(s): 50468169 Code(s): E87.2 - ACIDOSIS Status: Acute Priority: High Current Visit: Yes Onset Date: 02/25/21 Annotation/Comment:: Sepsis protocol initiated including blood cultures x2 and aggressive IV fluids with 1 L IV bolus of LR initiated in the emergency room. Note possible left upper lobe pneumonia as below. Consider cath UA with urine culture and sensitivity by accepting providers depending on his clinical course. (3) Need for comfort care SNOMED Code(s): 668752466, 384392277 Code(s): RCL4845 - Status: Acute Priority: High Current Visit: Yes Onset Date: 02/25/21 Annotation/Comment:: The patient was initially designated as a full code. Extensive counseling with the patient's in the emergency room and also at 12:15 PM by telephone with the patient's daughter, Anastasiia, and his son, Berhane, by telephone at 12:20 PM. Various therapeutic options were discussed with all family members agreeing to place the patient in a no code/comfort care status at this time. No further extensive cardiac work-up, including heart catheterization, etc. per their request. Initially they did request that the patient be transferred to [facility] in [place], however the family has elected to keep the patient in this facility as above. (4) CHF (congestive heart failure) SNOMED Code(s): 15043503 Code(s): I50.9 - HEART FAILURE, UNSPECIFIED Status: Acute Priority: High Current Visit: Yes Onset Date: 02/25/21 Annotation/Comment:: No known previous history of CHF, although apparent previous history of acute MA. Note episode of unresponsiveness. IV Lasix therapy not initiated in the emergency room secondary to elevated lactic acid level and possible sepsis as above requiring aggressive IV fluids as per sepsis protocol. No further heart catheterization, echocardiogram, etc. per the family's request. Initiate st andard rule out MA orders. No ASA, Brilinta, etc. secondary to his significant thrombocytopenia. Qualifiers: Heart failure type: unspecified Heart failure chronicity: acute Qualified Code(s): I50.9 - Heart failure, unspecified (5) D-dimer, elevated SNOMED Code(s): 273788957 Code(s): R79.89 - OTHER SPECIFIED ABNORMAL FINDINGS OF BLOOD CHEMISTRY Status: Acute Priority: High Current Visit: Yes Onset Date: 02/25/21 Annotation/Comment:: CTA of the chest and head results as above. Further work- up depending on his clinical course, including possible venous Doppler studies of lower extremities, which is not available at this facility until 02/28. Note ITP with moderate thrombocytopenia at this time. (6) Complete right bundle branch block SNOMED Code(s): 008735658 Code(s): I45.10 - UNSPECIFIED RIGHT BUNDLE-BRANCH BLOCK Status: Acute Priority: High Current Visit: Yes Onset Date: 02/25/21 Annotation/Comment:: Not previously documented. Probable concomitant anterior wall cardiac ischemia with intermittent moderate bradycardia and newly diagnosed first-degree AV block (7) First degree AV block SNOMED Code(s): 749161319 Code(s): I44.0 - ATRIOVENTRICULAR BLOCK, FIRST DEGREE Status: Acute Priority: Medium Current Visit: Yes Onset Date: 02/25/21 Annotation/Comment:: Observe for now (8) Chronic ITP (idiopathic thrombocytopenic purpura) SNOMED Code(s): 90950360 Code(s): D69.3 - IMMUNE THROMBOCYTOPENIC PURPURA Status: Chronic Priority: High Current Visit: Yes Annotation/Comment:: Note moderate thrombocytopenia. Patient unable to swallow aspirin or Brilinta with chest pain protocol otherwise followed as above. (9) Elevated LFTs SNOMED Code(s): 897711112 Code(s): R79.89 - OTHER SPECIFIED ABNORMAL FINDINGS OF BLOOD CHEMISTRY Status: Acute Current Visit: Yes Annotation/Comment:: Mild LFTs elevation likely secondary to his CHF. Observe for now. (10) Hypoalbuminemia SNOMED Code(s): 250439927 Code(s): E88.09 - OTH DISORDERS OF PLASMA-PROTEIN METABOLISM, NEC Status: Acute Priority: Medium Current Visit: Yes Onset Date: 02/25/21 Annotation/Comment:: Observe for now (11) Hypothyroidism (acquired) SNOMED Code(s): 988572615 Code(s): E03.9 - HYPOTHYROIDISM, UNSPECIFIED Status: Chronic Priority: Medium Current Visit: Yes Annotation/Comment:: Consider adjustment of thyroid medication depending on his clinical course (12) PVCs (premature ventricular contractions) SNOMED Code(s): 95708988 Code(s): I49.3 - VENTRICULAR PREMATURE DEPOLARIZATION Status: Acute Priority: Medium Current Visit: Yes Onset Date: 02/25/21 Annotation/Comment:: Occasional. Observe for now. (13) Parkinsons disease SNOMED Code(s): 50904990 Code(s): G20 - PARKINSON'S DISEASE Status: Chronic Priority: High Current Visit: Yes Annotation/Comment:: Significantly progressive in recent weeks with the patient now electing for comfort care only. Note progressive parkinsonian dementia, etc. as above. (14) Anemia SNOMED Code(s): 237331956 Code(s): D64.9 - ANEMIA, UNSPECIFIED Status: Chronic Priority: Medium Current Visit: Yes Annotation/Comment:: Note chronic vitamin B12 and iron deficiency anemia with no evidence of acute GI bleed. IV Pepcid given as GI prophylaxis. Qualifiers: Anemia type: unspecified type Qualified Code(s): D64.9 - Anemia, unspecified (15) Leukopenia SNOMED Code(s): 10374323, 065243306 Code(s): D72.819 - DECREASED WHITE BLOOD CELL COUNT, UNSPECIFIED Status: Acute Priority: Medium Current Visit: Yes Onset Date: 02/25/21 Annotation/Comment:: No fever, however no possible left upper lobe pneumonia as above. Observe for now. Qualifiers: Leukopenia type: neutropenia Neutropenia type: unspecified Qualified Code(s): D70.9 - Neutropenia, unspecified (16) COPD (chronic obstructive pulmonary disease) SNOMED Code(s): 41003594 Code(s): J44.9 - CHRONIC OBSTRUCTIVE PULMONARY DISEASE, UNSPECIFIED Status: Acute Priority: High Current Visit: Yes Onset Date: 02/25/21 Annotation/Comment:: Possible left upper lobe pneumonia by CTA scan of the chest as above. High-dose IV Rocephin given in the emergency room after blood cultures x2 were collected. No evidence of significant wheezing, respiratory distress, etc. at this time. Note lactic acid elevation as above. Qualifiers: COPD type: COPD with acute lower respiratory infection Qualified Code(s): J44.0 - Chronic obstructive pulmonary disease with (acute) lower respiratory infection - Problem List Review Problem List Initiated/Reviewed/Updated: Yes - My Orders Last 24 Hours: My Active Orders 02/25/21 Breakfast Nothing per Oral Now Diet [DIET] 02/25/21 11:13 Cardiac Monitoring [RC] . DIRECTED EKG Documentation Completion [RC] ASDIRECTED Oxygen Therapy, ED [RC] CONTINUOUS Peripheral IV Care [RC] . DIRECTED Pulse Oximetry [RC] CONTINUOUS Up With Assistance [RC] PFP Vital Signs [RC] PFP Chest 1V Frontal [CR] Stat Sodium Chloride 0.9% [Saline Flush] 10 ml FLUSH ASDIRECTED PRN Obtain Past Medical Record [OM.PC] Urgent Peripheral IV Insertion Adult [OM.PC] Stat 02/25/21 11:19 Sodium Chloride 0.9% [Saline Flush] 10 ml FLUSH ASDIRECTED PRN Peripheral IV Insertion Adult [OM.PC] Routine 02/25/21 11:20 Peripheral IV Care [RC] . DIRECTED 02/25/21 11:21 Head wo Cont [CT] Stat 02/25/21 11:30 CULTURE BLOOD [BC] Stat 02/25/21 12:11 Chest PE [Ang Chest] [CT] Stat 02/25/21 12:25 Resuscitation Status Stat 02/25/21 13:17 Blood Culture x2 Reflex Set [OM.PC] Urgent 02/25/21 13:26 CULTURE BLOOD [BC] Stat - Assessment/Plan Admission H&P: Please use this note as an admission H&P Last 24 Hours: My Active Orders 02/25/21 Breakfast Nothing per Oral Now Diet [DIET] 02/25/21 11:13 Cardiac Monitoring [RC] . DIRECTED EKG Documentation Completion [RC] ASDIRECTED Oxygen Therapy, ED [RC] CONTINUOUS Peripheral IV Care [RC] . DIRECTED Pulse Oximetry [RC] CONTINUOUS Up With Assistance [RC] PFP Vital Signs [RC] PFP Chest 1V Frontal [CR] Stat Sodium Chloride 0.9% [Saline Flush] 10 ml FLUSH ASDIRECTED PRN Obtain Past Medical Record [OM.PC] Urgent Peripheral IV Insertion Adult [OM.PC] Stat 02/25/21 11:19 Sodium Chloride 0.9% [Saline Flush] 10 ml FLUSH ASDIRECTED PRN Peripheral IV Insertion Adult [OM.PC] Routine 02/25/21 11:20 Peripheral IV Care [RC] . DIRECTED 02/25/21 11:21 Head wo Cont [CT] Stat 02/25/21 11:30 CULTURE BLOOD [BC] Stat 02/25/21 12:11 Chest PE [Ang Chest] [CT] Stat 02/25/21 12:25 Resuscitation Status Stat 02/25/21 13:17 Blood Culture x2 Reflex Set [OM.PC] Urgent 02/25/21 13:26 CULTURE BLOOD [BC] Stat Assessment:: As above Plan: As above. Extensive precautions were given to the patient and his family, who are in agreement with the treatment plan. The patient will require about 3-4 days of inpatient/acute care secondary to multiple health problems as above.
[2021-02-25] MEDS ORDERED: Sodium Chloride 0.9% 10 ML Syringe FLUSH PRN ×2 (11:19→15:23)
[2021-02-25 11:50] LABS: PTT,PARTIAL THROMBOPLSTIN TIME 28.1 SEC (24.5-32.8)
[2021-02-25 12:03] LABS: CHLORIDE,CL 102 mmol/L (98-107); SODIUM,NA 139 mmol/L (136-145)
[2021-02-25] MEDS ORDERED: Iopamidol 755 Mg/ML 100 ML Bottle IVPUSH ONE (12:30)
[2021-02-25] MEDS: Sodium Chloride 0.9% 10 ML Syringe FLUSH PRN ×4 (12:42→21:02)
[2021-02-25] MEDS ORDERED: Lactated Ringers 1,000 ML IV ONE (13:16)
[2021-02-25] MEDS ORDERED: cefTRIAXone 2 GM Vial IVPUSH ONE (13:16)
[2021-02-25] MEDS ORDERED: Acetaminophen 325 MG Tab PO PRN (16:00)
[2021-02-25] MEDS ORDERED: Lactated Ringers 1,000 ML IV SCH (17:45)
[2021-02-26] MEDS ORDERED: cefTRIAXone 1 GM in Sodium Chloride 0.9% 100 ML IV SCH (01:00)
[2021-02-26] MEDS: metroNIDAZOLE/Normal Saline 500 MG in Premix Bag 1 BAG IV SCH ×2 (01:05→11:01)
[2021-02-26] MEDS ORDERED: Furosemide 40 MG/4 ML VIAL IVPUSH ONE (08:10)
[2021-02-26] MEDS: Atropine 1% Ophth Soln 5 ML BOTTLE SL PRN ×4 (08:12→19:35)
[2021-02-26] MEDS ORDERED: Norepinephrine 4 MG in Dextrose 5% in Water 246 ML IV SCH ×2 (08:15)
[2021-02-26] MEDS ORDERED: Sodium Chloride 0.9% 1,000 ML IV SCH (08:15)
--- NOTE | 2021-02-26 08:29 | PCM.SN.2 ---
- Free Text/Narrative Note: Labs still pending this AM. Patient hypotensive, more wet/respiratory distress/CHF, and recurrent sezures this AM. Family had requested treatment of possible sepsis, CHF, acute SC, etc. however no patient transfer of aggressive workup. Prognosis extremely poor and patient unlikely to survive the next 24 hours with otherwise continuation of comfort care. Consider withdrawal of care, hospice, etc., if no improvement in 24 hours Trial of norepinephrine infusion, IV Lasix in spite of hypotension, IV KCl supplementation, IV Keppra, and IV diazepam. 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 Continue triple IV antibiotic therapy for now. astrophysics professor provider assumes care and will do rounds later this AM. Adjustment of care as needed depending on AM's blood results and course of illness.
[2021-02-26] MEDS: Potassium Chloride Riders 10 MEQ in Premix Bag 1 BAG IV SCH ×2 (08:47→11:02)
[2021-02-26] MEDS ORDERED: levETIRAcetam 500 MG in Sodium Chloride 0.9% 100 ML IV SCH (09:00)
[2021-02-26 09:08] LABS: CHLORIDE,CL 105 mmol/L (98-107); SODIUM,NA 140 mmol/L (136-145)
[2021-02-26] MEDS: Sodium Chloride 0.9% 10 ML Syringe FLUSH PRN (09:08)
[2021-02-26] MEDS ORDERED: Bisacodyl 5 MG Tab PO PRN (10:40)
[2021-02-26] MEDS ORDERED: Lidocaine 2% Viscous Solution 15 ML Cup PO PRN (10:40)
[2021-02-26] MEDS ORDERED: Ondansetron 4 MG/2 ML SDV IVPUSH PRN (10:40)
[2021-02-26] MEDS: Morphine 2 MG/ML SYRINGE IV PRN ×3 (12:08→19:35)
[2021-02-26] MEDS ORDERED: Furosemide 40 MG/4 ML VIAL IVPUSH SCH (13:00)
--- NOTE | 2021-02-26 17:06 | PCM.PN ---
- General Info Date of Service: 02/26/21 Subjective Update: Pt. did poorly overnight. He is now completely unresponsive, with gaze shifted to the upper left. He recoils from strong painful stimuli. GCS is 7. Pt. had several seizures overnight. He was given doses of IV diazepam and was loaded with keppra this AM. He is agonally breathing. Pupils approx. 2-3 mm and non-reactive. Pt. is continuing to be hypotensive with BP of 89/51 on rounds this AM. He is maintaining O2 saturations in the mid 90s on O2 per NC at 2L/min. Troponin has increased slightly to 0.069. ProBNP 5116. BUN is 30, creat 1.09. Pt. does not appear to be overly distressed. Pt. is in the room with him this AM for rounds. Unable to obtain ROS from the patient. - Patient Data Vitals - Most Recent: Last Vital Signs Temp 36.5 C 02/26/21 07:58 Pulse 68 02/26/21 09:30 Resp 16 02/26/21 09:30 BP 88/51 L 02/26/21 09:30 Pulse Ox 98 02/26/21 09:30 Weight - Most Recent: 75.296 kg I&O - Last 24 Hours: Intake & Output 02/26/21 02/26/21 02/26/21 06:59 14:59 22:59 Intake Total 887 Output Total 400 650 Balance 487 @ -650 Lab Results Last 24 Hours: Laboratory Results - last 24 hr 02/25/21 02/25/21 02/25/21 Range/Units 17:14 21:38 21:38 WBC (4.0-10.2) K/uL RBC (4.33-5.41) M/uL Hgb (13.1-16.8) g/dL Hct (39.0-49.0) % MCV (84.0-98.0) fL MCH (28.2-33.3) pg MCHC (31.7-36.0) g/dL RDW (11.2-14.1) % Plt Count (150-350) K/uL Neut % (Auto) (45.0-80.0) % Lymph % (Auto) (10.0-50.0) % [place] % (Auto) (2.0-14.0) % Eos % (Auto) (0.0-5.0) % Baso % (Auto) (0.0-2.0) % Neut # (Auto) (1.40-7.00) K/uL Lymph # (Auto) (0.50-3.50) K/uL [place] # (Auto) (0.00-1.00) K/uL Eos # (Auto) (0.00-0.50) K/uL Baso # (Auto) (0.00-0.20) K/uL D-Dimer, Quantitative (0-400) ng/mL Sodium (136-145) mmol/L Potassium (3.5-5.1) mmol/L Chloride (98-107) mmol/L Carbon Dioxide (21.0-32.0) mmol/L BUN (7-18) mg/dL Creatinine (0.51-1.17) mg/dL Est Cr Clr Drug Dosing mL/min Estimated GFR (MDRD) mL/min Glucose (70-99) mg/dL Hemoglobin A1c (4.3-5.7) % Lactic Acid 9.4 H (0.4-2.0) mmol/L Calcium (8.5-10.1) mg/dL Total Bilirubin (0.2-1.0) mg/dL AST (15-37) U/L ALT (12-78) U/L Alkaline Phosphatase (46-116) IU/L Creatine Kinase 41 (26-308) U/L Creatine Kinase Index 10.0 H (0.0-2.5) % CK-MB (CK-2) 4.10 H (0.00-3.60) ng/mL Troponin I 0.061 H* (0.000-0.056) ng/mL NT-Pro-B Natriuret Pep (0-125) pg/mL Total Protein (6.4-8.2) g/dL Albumin (3.4-5.0) g/dL Triglycerides (30-150) mg/dL Cholesterol (100-200) mg/dL LDL Cholesterol, Calc (0-100) mg/dL HDL Cholesterol (40-60) mg/dL Specimen Type Ur[place]ath Urine Color Yellow Urine Appearance Clear Urine pH 5.0 (5.0-9.0) Ur Specific [place] 1.015 (1.005-1.030) Urine Protein Negative (NEGATIVE) mg/dL Urine Glucose (UA) Negative (NEGATIVE) mg/dL Urine Ketones Negative (NEGATIVE) mg/dL Urine Occult Blood Negative (NEGATIVE) Urine Nitrite Negative (NEGATIVE) Urine Bilirubin Negative (NEGATIVE) Urine Urobilinogen 0.2 (0.2-1.0) E.U./dL Ur Leukocyte Esterase Negative (NEGATIVE) U Hyaline Cast (Auto) Few Urine RBC Not seen /HPF Urine WBC Not seen /HPF Ur Epithelial Cells Rare /LPF Urine Bacteria Rare (NONE TO FEW) /HPF 02/26/21 02/26/21 02/26/21 Range/Units 06:52 06:52 06:52 WBC 5.0 (4.0-10.2) K/uL RBC 3.57 L (4.33-5.41) M/uL Hgb 10.6 L (13.1-16.8) g/dL Hct 32.6 L (39.0-49.0) % MCV 91.3 (84.0-98.0) fL MCH 29.7 (28.2-33.3) pg MCHC 32.5 (31.7-36.0) g/dL RDW 16.7 H (11.2-14.1) % Plt Count 72 L (150-350) K/uL Neut % (Auto) 85.2 H (45.0-80.0) % Lymph % (Auto) 7.0 L (10.0-50.0) % [place] % (Auto) 7.6 (2.0-14.0) % Eos % (Auto) 0.2 (0.0-5.0) % Baso % (Auto) 0.0 (0.0-2.0) % Neut # (Auto) 4.25 (1.40-7.00) K/uL Lymph # (Auto) 0.35 L (0.50-3.50) K/uL [place] # (Auto) 0.38 (0.00-1.00) K/uL Eos # (Auto) 0.01 (0.00-0.50) K/uL Baso # (Auto) 0.00 (0.00-0.20) K/uL D-Dimer, Quantitative 2790 H (0-400) ng/mL Sodium 140 (136-145) mmol/L Potassium 4.1 (3.5-5.1) mmol/L Chloride 105 (98-107) mmol/L Carbon Dioxide 27.7 (21.0-32.0) mmol/L BUN 30 H (7-18) mg/dL Creatinine 1.09 (0.51-1.17) mg/dL Est Cr Clr Drug Dosing 40.73 mL/min Estimated GFR (MDRD) > 60 mL/min Glucose 74 (70-99) mg/dL Hemoglobin A1c (4.3-5.7) % Lactic Acid (0.4-2.0) mmol/L Calcium 9.0 (8.5-10.1) mg/dL Total Bilirubin 0.5 (0.2-1.0) mg/dL AST 61 H (15-37) U/L ALT 57 (12-78) U/L Alkaline Phosphatase 224 H (46-116) IU/L Creatine Kinase 38 (26-308) U/L Creatine Kinase Index 9.7 H (0.0-2.5) % CK-MB (CK-2) 3.70 H (0.00-3.60) ng/mL Troponin I 0.069 H* (0.000-0.056) ng/mL NT-Pro-B Natriuret Pep 5116 H (0-125) pg/mL Total Protein 6.5 (6.4-8.2) g/dL Albumin 2.4 L (3.4-5.0) g/dL Triglycerides 118 (30-150) mg/dL Cholesterol 144 (100-200) mg/dL LDL Cholesterol, Calc 82 (0-100) mg/dL HDL Cholesterol 38 L (40-60) mg/dL Specimen Type Urine Color Urine Appearance Urine pH (5.0-9.0) Ur Specific [place] (1.005-1.030) Urine Protein (NEGATIVE) mg/dL Urine Glucose (UA) (NEGATIVE) mg/dL Urine Ketones (NEGATIVE) mg/dL Urine Occult Blood (NEGATIVE) Urine Nitrite (NEGATIVE) Urine Bilirubin (NEGATIVE) Urine Urobilinogen (0.2-1.0) E.U./dL Ur Leukocyte Esterase (NEGATIVE) U Hyaline Cast (Auto) Urine RBC /HPF Urine WBC /HPF Ur Epithelial Cells /LPF Urine Bacteria (NONE TO FEW) /HPF 05/22/21 05/22/21 Range/Units 06:52 06:52 WBC (4.0-10.2) K/uL RBC (4.33-5.41) M/uL Hgb (13.1-16.8) g/dL Hct (39.0-49.0) % MCV (84.0-98.0) fL MCH (28.2-33.3) pg MCHC (31.7-36.0) g/dL RDW (11.2-14.1) % Plt Count (150-350) K/uL Neut % (Auto) (45.0-80.0) % Lymph % (Auto) (10.0-50.0) % [place] % (Auto) (2.0-14.0) % Eos % (Auto) (0.0-5.0) % Baso % (Auto) (0.0-2.0) % Neut # (Auto) (1.40-7.00) K/uL Lymph # (Auto) (0.50-3.50) K/uL [place] # (Auto) (0.00-1.00) K/uL Eos # (Auto) (0.00-0.50) K/uL Baso # (Auto) (0.00-0.20) K/uL D-Dimer, Quantitative (0-400) ng/mL Sodium (136-145) mmol/L Potassium (3.5-5.1) mmol/L Chloride (98-107) mmol/L Carbon Dioxide (21.0-32.0) mmol/L BUN (7-18) mg/dL Creatinine (0.51-1.17) mg/dL Est Cr Clr Drug Dosing mL/min Estimated GFR (MDRD) mL/min Glucose (70-99) mg/dL Hemoglobin A1c 6.0 H (4.3-5.7) % Lactic Acid 2.9 H (0.4-2.0) mmol/L Calcium (8.5-10.1) mg/dL Total Bilirubin (0.2-1.0) mg/dL AST (15-37) U/L ALT (12-78) U/L Alkaline Phosphatase (46-116) IU/L Creatine Kinase (26-308) U/L Creatine Kinase Index (0.0-2.5) % CK-MB (CK-2) (0.00-3.60) ng/mL Troponin I (0.000-0.056) ng/mL NT-Pro-B Natriuret Pep (0-125) pg/mL Total Protein (6.4-8.2) g/dL Albumin (3.4-5.0) g/dL Triglycerides (30-150) mg/dL Cholesterol (100-200) mg/dL LDL Cholesterol, Calc (0-100) mg/dL HDL Cholesterol (40-60) mg/dL Specimen Type Urine Color Urine Appearance Urine pH (5.0-9.0) Ur Specific [place] (1.005-1.030) Urine Protein (NEGATIVE) mg/dL Urine Glucose (UA) (NEGATIVE) mg/dL Urine Ketones (NEGATIVE) mg/dL Urine Occult Blood (NEGATIVE) Urine Nitrite (NEGATIVE) Urine Bilirubin (NEGATIVE) Urine Urobilinogen (0.2-1.0) E.U./dL Ur Leukocyte Esterase (NEGATIVE) U Hyaline Cast (Auto) Urine RBC /HPF Urine WBC /HPF Ur Epithelial Cells /LPF Urine Bacteria (NONE TO FEW) /HPF Kishore Results Last 24 Hours: Microbiology 02/25/21 13:26 Aerobic Blood Culture - Preliminary Blood - Venous - Lab Draw NO GROWTH AFTER 1 DAY Anaerobic Blood Culture - Preliminary NO GROWTH AFTER 1 DAY 02/25/21 11:30 Aerobic Blood Culture - Preliminary Blood - Venous NO GROWTH AFTER 1 DAY 02/25/21 17:14 Urine Culture - Preliminary Urine, Catheterized NO GROWTH AFTER 1 DAY Med Orders - Current: Current Medications Acetaminophen (Acetaminophen 325 Mg Tab) 650 mg PO Q4H PRN PRN Reason: Pain Atropine Sulfate (Atropine 1% Ophth Soln 5 Ml Bottle) 0 ml SL Q2H PRN PRN Reason: secretions Last Admin: 02/26/21 16:06 Dose: 5 ml Documented by: Bisacodyl (Bisacodyl 5 Mg Tab) 10 mg PO DAILY PRN PRN Reason: Constipation Diazepam (Diazepam 10 Mg/2 Ml Syringe) 2.5 mg IVPUSH Q4H TOVA Last Admin: 02/26/21 16:05 Dose: 2.5 mg Documented by: Lidocaine HCl (Lidocaine 2% Viscous Solution 15 Ml Cup) 5 ml PO Q4H PRN PRN Reason: Pain Morphine Sulfate (Morphine 2 Mg/Ml Syringe) 2 mg IV Q1H PRN PRN Reason: Pain Last Admin: 02/26/21 16:06 Dose: 2 mg Documented by: Ondansetron HCl (Ondansetron 4 Mg/2 Ml Sdv) 4 mg IVPUSH Q4H PRN PRN Reason: Nausea Senna/Docusate Sodium (Docusate Sodium/Sennosides 50-8.6 Mg Tab) 1 tab PO QID PRN PRN Reason: Constipation Discontinued Medications Ceftriaxone Sodium (Ceftriaxone 2 Gm Vial) 2 gm IVPUSH ONETIME ONE Stop: 02/25/21 13:17 Last Admin: 02/25/21 14:14 Dose: 2 gm Documented by: Diazepam (Diazepam 10 Mg/2 Ml Syringe) 2.5 mg IVPUSH ONETIME ONE Stop: 02/26/21 08:10 Last Admin: 02/26/21 08:41 Dose: 2.5 mg Documented by: Famotidine (Famotidine 20 Mg/2 Ml Sdv) 40 mg IVPUSH ONETIME ONE Stop: 02/25/21 11:14 Last Admin: 02/25/21 11:20 Dose: 40 mg Documented by: Furosemide (Furosemide 40 Mg/4 Ml Vial) 60 mg IVPUSH NOW ONE Stop: 02/26/21 08:11 Last Admin: 02/26/21 08:43 Dose: 60 mg Documented by: Furosemide (Furosemide 40 Mg/4 Ml Vial) 40 mg IVPUSH Q8H [facility] Lactated Ringer's (Ringers, Lactated) 1,000 mls @ 999 mls/hr IV .BOLUS ONE Stop: 02/25/21 14:16 Last Admin: 02/25/21 14:15 Dose: 999 mls/hr Documented by: Vancomycin HCl 1 gm/ Sodium (Chloride) 250 mls @ 165 mls/hr IV Q24H [facility] Last Admin: 02/25/21 17:40 Dose: 165 mls/hr Documented by: Lactated Ringer's (Ringers, Lactated) 1,000 mls @ 100 mls/hr IV ASDIRECTED [facility] Last Admin: 02/25/21 21:02 Dose: 100 mls/hr Documented by: Ceftriaxone Sodium 1 gm/ (Sodium Chloride) 100 mls @ 200 mls/hr IV Q12H [facility] Last Admin: 02/26/21 00:34 Dose: 200 mls/hr Documented by: Metronidazole 500 mg/ Premix 100 mls @ 100 mls/hr IV Q8H [facility] Last Admin: 02/26/21 11:01 Dose: Not Given Documented by: Norepinephrine Bitartrate 4 mg (/ Dextrose/Water) 250 mls @ 7.5 mls/hr IV TITRATE [facility]; Protocol Potassium Chloride 10 meq/ (Premix) 50 mls @ 50 mls/hr IV Q1H [facility] Stop: 02/26/21 16:59 Last Admin: 02/26/21 11:02 Dose: Not Given Documented by: Sodium Chloride (Normal Saline) 1,000 mls @ 50 mls/hr IV ASDIRECTED [facility] Last Admin: 02/26/21 08:47 Dose: 50 mls/hr Documented by: Levetiracetam 500 mg/ Sodium (Chloride) 105 mls @ 400 mls/hr IV Q12H [facility] Last Admin: 02/26/21 08:46 Dose: 400 mls/hr Documented by: Iopamidol (Iopamidol 755 Mg/Ml 100 Ml Bottle) 100 ml IVPUSH ONETIME ONE Stop: 02/25/21 12:31 Last Admin: 02/25/21 12:42 Dose: 100 ml Documented by: Sodium Chloride (Sodium Chloride 0.9% 10 Ml Syringe) 10 ml FLUSH ASDIRECTED PRN PRN Reason: Keep Vein Open Last Admin: 02/26/21 09:08 Dose: 10 ml Documented by: Sodium Chloride (Sodium Chloride 0.9% 10 Ml Syringe) 10 ml FLUSH ASDIRECTED PRN PRN Reason: Keep Vein Open Sodium Chloride (Sodium Chloride 0.9% 10 Ml Syringe) 10 ml FLUSH Q12HR PRN PRN Reason: Keep Vein Open Vancomycin HCl (Pharmacy To Dose - Vancomycin) 1 dose .XX ASDIRECTED [facility] - Exam Quality Assessment: Supplemental Oxygen Urinary Catheter Total Time: 0Days 14Hours General: No Acute Distress, Other (Unresponsive) HEENT: Other (Constricted to 1-2 mm, non-reactive. Gaze shifted to left.) Lungs: Rales, Other (Rales and crackles in all carrillo, with agonal breathing.) Cardiovascular: Regular Rate, Murmurs GI/Abdominal Exam: Soft, No Distention, No Mass, Pelvis Stable Extremities: Normal Inspection, No Pedal Edema, Other (Cap refill approx. 4 sec.) Peripheral Pulses: 1+: Posterior Tibial (L), Posterior Tibial (R) Skin: Warm, Dry, Intact Neurological: Other (See HPI. ) - Patient Data Lab Results Last 24 hrs: Laboratory Results - last 24 hr 02/25/21 02/25/21 02/25/21 Range/Units 17:14 21:38 21:38 WBC (4.0-10.2) K/uL RBC (4.33-5.41) M/uL Hgb (13.1-16.8) g/dL Hct (39.0-49.0) % MCV (84.0-98.0) fL MCH (28.2-33.3) pg MCHC (31.7-36.0) g/dL RDW (11.2-14.1) % Plt Count (150-350) K/uL Neut % (Auto) (45.0-80.0) % Lymph % (Auto) (10.0-50.0) % [place] % (Auto) (2.0-14.0) % Eos % (Auto) (0.0-5.0) % Baso % (Auto) (0.0-2.0) % Neut # (Auto) (1.40-7.00) K/uL Lymph # (Auto) (0.50-3.50) K/uL [place] # (Auto) (0.00-1.00) K/uL Eos # (Auto) (0.00-0.50) K/uL Baso # (Auto) (0.00-0.20) K/uL D-Dimer, Quantitative (0-400) ng/mL Sodium (136-145) mmol/L Potassium (3.5-5.1) mmol/L Chloride (98-107) mmol/L Carbon Dioxide (21.0-32.0) mmol/L BUN (7-18) mg/dL Creatinine (0.51-1.17) mg/dL Est Cr Clr Drug Dosing mL/min Estimated GFR (MDRD) mL/min Glucose (70-99) mg/dL Hemoglobin A1c (4.3-5.7) % Lactic Acid 9.4 H (0.4-2.0) mmol/L Calcium (8.5-10.1) mg/dL Total Bilirubin (0.2-1.0) mg/dL AST (15-37) U/L ALT (12-78) U/L Alkaline Phosphatase (46-116) IU/L Creatine Kinase 41 (26-308) U/L Creatine Kinase Index 10.0 H (0.0-2.5) % CK-MB (CK-2) 4.10 H (0.00-3.60) ng/mL Troponin I 0.061 H* (0.000-0.056) ng/mL NT-Pro-B Natriuret Pep (0-125) pg/mL Total Protein (6.4-8.2) g/dL Albumin (3.4-5.0) g/dL Triglycerides (30-150) mg/dL Cholesterol (100-200) mg/dL LDL Cholesterol, Calc (0-100) mg/dL HDL Cholesterol (40-60) mg/dL Specimen Type Ur[place]ath Urine Color Yellow Urine Appearance Clear Urine pH 5.0 (5.0-9.0) Ur Specific [place] 1.015 (1.005-1.030) Urine Protein Negative (NEGATIVE) mg/dL Urine Glucose (UA) Negative (NEGATIVE) mg/dL Urine Ketones Negative (NEGATIVE) mg/dL Urine Occult Blood Negative (NEGATIVE) Urine Nitrite Negative (NEGATIVE) Urine Bilirubin Negative (NEGATIVE) Urine Urobilinogen 0.2 (0.2-1.0) E.U./dL Ur Leukocyte Esterase Negative (NEGATIVE) U Hyaline Cast (Auto) Few Urine RBC Not seen /HPF Urine WBC Not seen /HPF Ur Epithelial Cells Rare /LPF Urine Bacteria Rare (NONE TO FEW) /HPF 02/26/21 02/26/21 02/26/21 Range/Units 06:52 06:52 06:52 WBC 5.0 (4.0-10.2) K/uL RBC 3.57 L (4.33-5.41) M/uL Hgb 10.6 L (13.1-16.8) g/dL Hct 32.6 L (39.0-49.0) % MCV 91.3 (84.0-98.0) fL MCH 29.7 (28.2-33.3) pg MCHC 32.5 (31.7-36.0) g/dL RDW 16.7 H (11.2-14.1) % Plt Count 72 L (150-350) K/uL Neut % (Auto) 85.2 H (45.0-80.0) % Lymph % (Auto) 7.0 L (10.0-50.0) % [place] % (Auto) 7.6 (2.0-14.0) % Eos % (Auto) 0.2 (0.0-5.0) % Baso % (Auto) 0.0 (0.0-2.0) % Neut # (Auto) 4.25 (1.40-7.00) K/uL Lymph # (Auto) 0.35 L (0.50-3.50) K/uL [place] # (Auto) 0.38 (0.00-1.00) K/uL Eos # (Auto) 0.01 (0.00-0.50) K/uL Baso # (Auto) 0.00 (0.00-0.20) K/uL D-Dimer, Quantitative 2790 H (0-400) ng/mL Sodium 140 (136-145) mmol/L Potassium 4.1 (3.5-5.1) mmol/L Chloride 105 (98-107) mmol/L Carbon Dioxide 27.7 (21.0-32.0) mmol/L BUN 30 H (7-18) mg/dL Creatinine 1.09 (0.51-1.17) mg/dL Est Cr Clr Drug Dosing 40.73 mL/min Estimated GFR (MDRD) > 60 mL/min Glucose 74 (70-99) mg/dL Hemoglobin A1c (4.3-5.7) % Lactic Acid (0.4-2.0) mmol/L Calcium 9.0 (8.5-10.1) mg/dL Total Bilirubin 0.5 (0.2-1.0) mg/dL AST 61 H (15-37) U/L ALT 57 (12-78) U/L Alkaline Phosphatase 224 H (46-116) IU/L Creatine Kinase 38 (26-308) U/L Creatine Kinase Index 9.7 H (0.0-2.5) % CK-MB (CK-2) 3.70 H (0.00-3.60) ng/mL Troponin I 0.069 H* (0.000-0.056) ng/mL NT-Pro-B Natriuret Pep 5116 H (0-125) pg/mL Total Protein 6.5 (6.4-8.2) g/dL Albumin 2.4 L (3.4-5.0) g/dL Triglycerides 118 (30-150) mg/dL Cholesterol 144 (100-200) mg/dL LDL Cholesterol, Calc 82 (0-100) mg/dL HDL Cholesterol 38 L (40-60) mg/dL Specimen Type Urine Color Urine Appearance Urine pH (5.0-9.0) Ur Specific [place] (1.005-1.030) Urine Protein (NEGATIVE) mg/dL Urine Glucose (UA) (NEGATIVE) mg/dL Urine Ketones (NEGATIVE) mg/dL Urine Occult Blood (NEGATIVE) Urine Nitrite (NEGATIVE) Urine Bilirubin (NEGATIVE) Urine Urobilinogen (0.2-1.0) E.U./dL Ur Leukocyte Esterase (NEGATIVE) U Hyaline Cast (Auto) Urine RBC /HPF Urine WBC /HPF Ur Epithelial Cells /LPF Urine Bacteria (NONE TO FEW) /HPF 02/26/21 02/26/21 Range/Units 06:52 06:52 WBC (4.0-10.2) K/uL RBC (4.33-5.41) M/uL Hgb (13.1-16.8) g/dL Hct (39.0-49.0) % MCV (84.0-98.0) fL MCH (28.2-33.3) pg MCHC (31.7-36.0) g/dL RDW (11.2-14.1) % Plt Count (150-350) K/uL Neut % (Auto) (45.0-80.0) % Lymph % (Auto) (10.0-50.0) % [place] % (Auto) (2.0-14.0) % Eos % (Auto) (0.0-5.0) % Baso % (Auto) (0.0-2.0) % Neut # (Auto) (1.40-7.00) K/uL Lymph # (Auto) (0.50-3.50) K/uL [place] # (Auto) (0.00-1.00) K/uL Eos # (Auto) (0.00-0.50) K/uL Baso # (Auto) (0.00-0.20) K/uL D-Dimer, Quantitative (0-400) ng/mL Sodium (136-145) mmol/L Potassium (3.5-5.1) mmol/L Chloride (98-107) mmol/L Carbon Dioxide (21.0-32.0) mmol/L BUN (7-18) mg/dL Creatinine (0.51-1.17) mg/dL Est Cr Clr Drug Dosing mL/min Estimated GFR (MDRD) mL/min Glucose (70-99) mg/dL Hemoglobin A1c 6.0 H (4.3-5.7) % Lactic Acid 2.9 H (0.4-2.0) mmol/L Calcium (8.5-10.1) mg/dL Total Bilirubin (0.2-1.0) mg/dL AST (15-37) U/L ALT (12-78) U/L Alkaline Phosphatase (46-116) IU/L Creatine Kinase (26-308) U/L Creatine Kinase Index (0.0-2.5) % CK-MB (CK-2) (0.00-3.60) ng/mL Troponin I (0.000-0.056) ng/mL NT-Pro-B Natriuret Pep (0-125) pg/mL Total Protein (6.4-8.2) g/dL Albumin (3.4-5.0) g/dL Triglycerides (30-150) mg/dL Cholesterol (100-200) mg/dL LDL Cholesterol, Calc (0-100) mg/dL HDL Cholesterol (40-60) mg/dL Specimen Type Urine Color Urine Appearance Urine pH (5.0-9.0) Ur Specific [place] (1.005-1.030) Urine Protein (NEGATIVE) mg/dL Urine Glucose (UA) (NEGATIVE) mg/dL Urine Ketones (NEGATIVE) mg/dL Urine Occult Blood (NEGATIVE) Urine Nitrite (NEGATIVE) Urine Bilirubin (NEGATIVE) Urine Urobilinogen (0.2-1.0) E.U./dL Ur Leukocyte Esterase (NEGATIVE) U Hyaline Cast (Auto) Urine RBC /HPF Urine WBC /HPF Ur Epithelial Cells /LPF Urine Bacteria (NONE TO FEW) /HPF Result Diagrams: 02/26/21 06:52 02/26/21 06:52 Kishore Results Last 24 hrs: Microbiology 02/25/21 13:26 Aerobic Blood Culture - Preliminary Blood - Venous - Lab Draw NO GROWTH AFTER 1 DAY Anaerobic Blood Culture - Preliminary NO GROWTH AFTER 1 DAY 02/25/21 11:30 Aerobic Blood Culture - Preliminary Blood - Venous NO GROWTH AFTER 1 DAY 02/25/21 17:14 Urine Culture - Preliminary Urine, Catheterized NO GROWTH AFTER 1 DAY Sepsis Event Note - Evaluation Sepsis Screening Result: No Definite Risk - Focused Exam Vital Signs: Vital Signs Temp Pulse Resp BP Pulse Ox 02/26/21 09:30 68 16 88/51 L 98 02/26/21 09:00 63 18 86/53 L 97 02/26/21 08:50 69 16 84/20 L 98 02/26/21 08:15 100 16 90/56 L 95 02/26/21 08:10 90 12 55/32 L 87 L 02/26/21 07:58 36.5 C 80 20 79/48 L 98 02/26/21 06:00 36.8 C 67 16 112/53 L 98 - Problem List Review Problem List Initiated/Reviewed/Updated: Yes - My Orders Last 24 Hours: My Active Orders 02/26/21 10:40 Docusate Sodium/Sennosides [Senna Plus] 1 tab PO QID PRN Lidocaine 2% [Xylocaine 2% Viscous] 5 ml PO Q4H PRN Morphine 2 mg IV Q1H PRN Ondansetron [Zofran] 4 mg IVPUSH Q4H PRN bisacodyL [Dulcolax] 10 mg PO DAILY PRN Resuscitation Status Routine 02/26/21 10:43 Patient Status [ADT] Routine Oxygen Therapy [RC] 2300 02/26/21 10:54 Vital Signs [RC] 08,20 - Plan Plan:: Discussed findings at length with pt. . She wishes to commence full comfort cares. 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 His chances for a meaningful recovery are extremely low. states that they have discussed end of life plans in he past, and patient has indicated that he does not wish to be kept alive by artificial means in the event of a significant medical problems if he has signs of brain injury. All IV medications have been stopped at this point. No pressors were started, per discussion with patient . Telemetry, lab draws and vitals have been discontinued as well. Will continue to treat seizure activity with IV valium. Will add IV keppra for seizures refractory to the valium. Start IV morphine for pain control/agitation. Atropine as needed for secretions. Tylenol suppository for fever. Continue mishra catheter per end of life care indication. wishes to stay with the patient if possible. Will arrange for her to stay in the room with the patient tonight.
[2021-02-26 19:30] VITALS: BP 103/61
[2021-02-27] MEDS: Atropine 1% Ophth Soln 5 ML BOTTLE SL PRN ×5 (00:13→20:49)
[2021-02-27] MEDS: Morphine 2 MG/ML SYRINGE IV PRN ×3 (00:13→09:02)
[2021-02-27] MEDS: Sodium Chloride 0.9% 10 ML Syringe FLUSH PRN ×3 (09:02→18:13)
--- NOTE | 2021-02-27 22:49 | PCM.PN ---
- General Info Date of Service: 02/27/21 Admission Dx/Problem (Free Text): Pt. continues to decline. Pt. continues to have agonal respirations and is still unresponsive. Eyes are closed most of the time. He occasionally opens his eyes but does not track and gaze is still shifted toward the upper left. Lung sounds are still diminished with rales/rhonchi. Mishra catheter is still in place per comfort care protocol. He has been receiving IV morphine for discomfort per nursing protocol. He has also been getting IV diazepam for agitation/seizures. Nursing reports he did have a seizure this AM. continues to stay at pt. bedside. She reports that family is going to be coming today/tomorrow to see their Father. Functional Status: Reports: Pain Controlled. Denies: Tolerating Diet - Review of Systems Genitourinary: Reports: Other (mishra catheter in place.) Skin: Reports: Pallor Neurological: Reports: Other (unresponsive with seizures) - Patient Data Vitals - Most Recent: Last Vital Signs Temp 37.6 C 02/26/21 19:29 Pulse 70 02/26/21 19:29 Resp 14 02/26/21 19:29 BP 103/61 02/26/21 19:29 Pulse Ox 95 02/26/21 19:29 Weight - Most Recent: 75.296 kg I&O - Last 24 Hours: Intake & Output 02/27/21 02/27/21 02/27/21 06:59 14:59 22:59 Intake Total 0 Output Total 550 Balance -550 @ @ Kishore Results Last 24 Hours: Microbiology 02/25/21 13:26 Aerobic Blood Culture - Preliminary Blood - Venous - Lab Draw NO GROWTH AFTER 2 DAYS Anaerobic Blood Culture - Preliminary NO GROWTH AFTER 2 DAYS 02/25/21 11:30 Aerobic Blood Culture - Preliminary Blood - Venous NO GROWTH AFTER 2 DAYS Med Orders - Current: Current Medications Acetaminophen (Acetaminophen 325 Mg Tab) 650 mg PO Q4H PRN PRN Reason: Pain Atropine Sulfate (Atropine 1% Ophth Soln 5 Ml Bottle) 0 ml SL Q2H PRN PRN Reason: secretions Last Admin: 02/27/21 20:49 Dose: 1 ml Documented by: Bisacodyl (Bisacodyl 5 Mg Tab) 10 mg PO DAILY PRN PRN Reason: Constipation Diazepam (Diazepam 10 Mg/2 Ml Syringe) 2.5 mg IVPUSH Q4H [facility] Last Admin: 02/27/21 20:49 Dose: 2.5 mg Documented by: Lidocaine HCl (Lidocaine 2% Viscous Solution 15 Ml Cup) 5 ml PO Q4H PRN PRN Reason: Pain Morphine Sulfate (Morphine 2 Mg/Ml Syringe) 2 mg IV Q1H PRN PRN Reason: Pain Last Admin: 02/27/21 09:02 Dose: 2 mg Documented by: Ondansetron HCl (Ondansetron 4 Mg/2 Ml Sdv) 4 mg IVPUSH Q4H PRN PRN Reason: Nausea Senna/Docusate Sodium (Docusate Sodium/Sennosides 50-8.6 Mg Tab) 1 tab PO QID PRN PRN Reason: Constipation Discontinued Medications Ceftriaxone Sodium (Ceftriaxone 2 Gm Vial) 2 gm IVPUSH ONETIME ONE Stop: 02/25/21 13:17 Last Admin: 02/25/21 14:14 Dose: 2 gm Documented by: Diazepam (Diazepam 10 Mg/2 Ml Syringe) 2.5 mg IVPUSH ONETIME ONE Stop: 02/26/21 08:10 Last Admin: 02/26/21 08:41 Dose: 2.5 mg Documented by: Famotidine (Famotidine 20 Mg/2 Ml Sdv) 40 mg IVPUSH ONETIME ONE Stop: 02/25/21 11:14 Last Admin: 02/25/21 11:20 Dose: 40 mg Documented by: Furosemide (Furosemide 40 Mg/4 Ml Vial) 60 mg IVPUSH NOW ONE Stop: 02/26/21 08:11 Last Admin: 02/26/21 08:43 Dose: 60 mg Documented by: Furosemide (Furosemide 40 Mg/4 Ml Vial) 40 mg IVPUSH Q8H [facility] Lactated Ringer's (Ringers, Lactated) 1,000 mls @ 999 mls/hr IV .BOLUS ONE Stop: 02/25/21 14:16 Last Admin: 02/25/21 14:15 Dose: 999 mls/hr Documented by: Vancomycin HCl 1 gm/ Sodium (Chloride) 250 mls @ 165 mls/hr IV Q24H [facility] Last Admin: 02/25/21 17:40 Dose: 165 mls/hr Documented by: Lactated Ringer's (Ringers, Lactated) 1,000 mls @ 100 mls/hr IV ASDIRECTED [facility] Last Admin: 02/25/21 21:02 Dose: 100 mls/hr Documented by: Ceftriaxone Sodium 1 gm/ (Sodium Chloride) 100 mls @ 200 mls/hr IV Q12H [facility] Last Admin: 02/26/21 00:34 Dose: 200 mls/hr Documented by: Metronidazole 500 mg/ Premix 100 mls @ 100 mls/hr IV Q8H [facility] Last Admin: 02/26/21 11:01 Dose: Not Given Documented by: Norepinephrine Bitartrate 4 mg (/ Dextrose/Water) 250 mls @ 7.5 mls/hr IV TITRATE [facility]; Protocol Potassium Chloride 10 meq/ (Premix) 50 mls @ 50 mls/hr IV Q1H [facility] Stop: 02/26/21 16:59 Last Admin: 02/26/21 11:02 Dose: Not Given Documented by: Sodium Chloride (Normal Saline) 1,000 mls @ 50 mls/hr IV ASDIRECTED [facility] Last Admin: 02/26/21 08:47 Dose: 50 mls/hr Documented by: Levetiracetam 500 mg/ Sodium (Chloride) 105 mls @ 400 mls/hr IV Q12H [facility] Last Admin: 02/26/21 08:46 Dose: 400 mls/hr Documented by: Iopamidol (Iopamidol 755 Mg/Ml 100 Ml Bottle) 100 ml IVPUSH ONETIME ONE Stop: 02/25/21 12:31 Last Admin: 02/25/21 12:42 Dose: 100 ml Documented by: Sodium Chloride (Sodium Chloride 0.9% 10 Ml Syringe) 10 ml FLUSH ASDIRECTED PRN PRN Reason: Keep Vein Open Last Admin: 02/27/21 18:13 Dose: 10 ml Documented by: Sodium Chloride (Sodium Chloride 0.9% 10 Ml Syringe) 10 ml FLUSH ASDIRECTED PRN PRN Reason: Keep Vein Open Sodium Chloride (Sodium Chloride 0.9% 10 Ml Syringe) 10 ml FLUSH Q12HR PRN PRN Reason: Keep Vein Open Vancomycin HCl (Pharmacy To Dose - Vancomycin) 1 dose .XX ASDIRECTED [facility] - Exam Quality Assessment: Supplemental Oxygen Urinary Catheter Total Time: 2Days 2Hours General: Obtunded, Other Lungs: Decreased Breath Sounds, Rales, Rhonchi, Other (agonal breathing) Cardiovascular: Regular Rate GI/Abdominal Exam: Soft, No Distention, No Mass Extremities: Normal Inspection, No Pedal Edema Skin: Warm, Dry Neurological: No New Focal Deficit - Patient Data Result Diagrams: 02/26/21 06:52 02/26/21 06:52 Kishore Results Last 24 hrs: Microbiology 02/25/21 13:26 Aerobic Blood Culture - Preliminary Blood - Venous - Lab Draw NO GROWTH AFTER 2 DAYS Anaerobic Blood Culture - Preliminary NO GROWTH AFTER 2 DAYS 02/25/21 11:30 Aerobic Blood Culture - Preliminary Blood - Venous NO GROWTH AFTER 2 DAYS Sepsis Event Note - Evaluation Sepsis Screening Result: No Definite Risk - Problem List Review Problem List Initiated/Reviewed/Updated: Yes - My Orders Last 24 Hours: My Active Orders 02/27/21 08:00 Vital Signs [RC] ASDIRECTED 02/27/21 19:31 Renew/Continue Urinary Catheter [OM.PC] Routine - Plan Plan:: Anticipate transfer back to skilled nursing tomorrow if the patient lives through the night. Discussed findings with who is in agreement with this plan. She has been in contact with all of her family. Continue no further lab draws, vitals, or telemetry. Continue O2 for comfort. IV ativan for seizures/agitation and morphine for discomfort. Discussed findings at length with pt. . She wishes to commence full comfort cares. 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 His chances for a meaningful recovery are extremely low. states that they have discussed end of life plans in he past, and patient has indicated that he does not wish to be kept alive by artificial means in the event of a significant medical problems if he has signs of brain injury. All IV medications have been stopped at this point. No pressors were started, per discussion with patient . Telemetry, lab draws and vitals have been discontinued as well. Will continue to treat seizure activity with IV valium. Will add IV keppra for seizures refractory to the valium. Start IV morphine for pain control/agitation. Atropine as needed for secretions. Tylenol suppository for fever. Continue mishra catheter per end of life care indication. wishes to stay with the patient if possible. Will arrange for her to stay in the room with the patient tonight.
[2021-02-28] MEDS: Atropine 1% Ophth Soln 5 ML BOTTLE SL PRN ×2 (04:05→08:49)
[2021-02-28] MEDS ORDERED: Sodium Chloride 0.9% 10 ML Syringe FLUSH PRN (08:51)
[2021-02-28 09:10] VITALS: PULSE 75
--- NOTE | 2021-02-28 10:57 | PCM.DCSUM1 ---
Discharge Summary - Hospital Course Free Text/Narrative:: Pt. will be discharged today and transferred to PR 's home. Pt. is being cared for my [facility] Pt. has had no further seizure activity since yesterday. He continues to be persistently unresponsive. states that he did open his eyes some yesterday evening. Pt. has been getting IV morphine and valium for discomfort/agitation. Pt. IV will be discontinued and he will be transitioned to oral morphine and ativan. Hospice nurse was given scripts for this, as there might be a gap in time before the hospice medical office asst can enter orders. Pt. daughter, Peggy, has come to be with the patient and Mother. discussed findings and plan of care at length with her. She is in agreement with the plan and treatment so far. [facility]. EMTALA and PCS forms were both filled out. Diagnosis: Stroke: No - Discharge Data Discharge Date: 02/28/21 Discharge Disposition: DC/Tfer to Intermediate Care [facility] Condition: Poor - Referral to Home Health Primary Care Physician: CODY Martinez - Discharge Diagnosis/Problem(s) (1) Unresponsiveness SNOMED Code(s): 900036943 ICD Code: R41.89 - OTH SYMPTOMS AND SIGNS W COGNITIVE FUNCTIONS AND AWARENESS Status: Acute Priority: High Current Visit: Yes Onset Date: 02/25/21 Problem Details: Initial telephone consultation at 1:11 PM with [facility] in [place]. Subsequent telephone consultation at 1:[address] Luu, who is willing to accept the patient, however he does not feel that they can offer him any advantages and care in their facility secondary to the family's current wishes of comfort care only. Various therapeutic options were discussed with the patient's and his brother, who are now requesting that the patient stay in this facility for comfort care. Period of unresponsiveness of unknown etiology with possible contributing factors, including threatening acute RI with CHF, bradycardia, etc. and additional possible CVA with negative initial CT of the head without contrast as above. Further work-up depending on his clinical course including possible MRI of the brain, which is not available in this facility until 02/28. Prognosis is extremely poor secondary to multiple health issues as above/below. Slow improvement of patient's unresponsiveness during his emergency room care as above with stable vital signs and clinical exam at time of admission. (2) Anoxic brain injury Status: Acute Current Visit: Yes (3) Parkinsons disease SNOMED Code(s): 02520394 ICD Code: G20 - PARKINSON'S DISEASE Status: Chronic Priority: High Current Visit: Yes Problem Details: Significantly progressive in recent weeks with the patient now electing for comfort care only. Note progressive parkinsonian dementia, etc. as above. (4) Need for comfort care SNOMED Code(s): 079890373, [id number] ICD Code: [id number] - Status: Acute Priority: High Current Visit: Yes Onset Date: 02/25/21 Problem Details: The patient was initially designated as a full code. Extensive counseling with the patient's in the emergency room and also at 12:15 PM by telephone with the patient's daughter, Anastasiia, and his son, Berhane, by telephone at 12:20 PM. Various therapeutic options were discussed with all family members agreeing to place the patient in a no code/comfort care status at this time. No further extensive cardiac work-up, including heart catheterization, etc. per their request. Initially they did request that the patient be transferred to [facility] in [place], however the family has elected to keep the patient in this facility as above. - Discharge Plan Forms: ED Department Discharge, Interfacility Transfer EMTALA Referrals: PCP,None [Ordering Only Provider] - - Discharge Summary/Plan Comment DC Time >30 min.: Yes Discharge Summary/Plan Comment: Pt. will be discharged this AM. Prescriptions for ativan and morphine were provided. Pt. will be transported via S ground ambulance. All questions were answered. - General Info Date of Service: 02/28/21 Functional Status: Reports: Pain Controlled, Urinating - Review of Systems Neurological: Reports: Other (persistently unresponsive) - Patient Data Vitals - Most Recent: Last Vital Signs Temp 37.6 C 02/26/21 19:29 Pulse 75 02/28/21 09:00 Resp 12 02/28/21 09:00 BP 103/61 02/26/21 19:29 Pulse Ox 92 L 02/28/21 09:00 Weight - Most Recent: 75.296 kg I&O - Last 24 hours: Intake & Output 02/27/21 02/28/21 02/28/21 22:59 06:59 14:59 Intake Total 0 Output Total 750 Balance @ -750 @ MELODIE Results - Last 24 hrs: Microbiology 02/25/21 17:14 Urine Culture - Final Urine, Catheterized NO GROWTH AFTER 2 DAYS 02/25/21 13:26 Aerobic Blood Culture - Preliminary Blood - Venous - Lab Draw NO GROWTH AFTER 2 DAYS Anaerobic Blood Culture - Preliminary NO GROWTH AFTER 2 DAYS 02/25/21 11:30 Aerobic Blood Culture - Preliminary Blood - Venous NO GROWTH AFTER 2 DAYS Med Orders - Current: Current Medications Acetaminophen (Acetaminophen 325 Mg Tab) 650 mg PO Q4H PRN PRN Reason: Pain Atropine Sulfate (Atropine 1% Ophth Soln 5 Ml Bottle) 0 ml SL Q2H PRN PRN Reason: secretions Last Admin: 02/28/21 08:49 Dose: 1 ml Documented by: Bisacodyl (Bisacodyl 5 Mg Tab) 10 mg PO DAILY PRN PRN Reason: Constipation Diazepam (Diazepam 10 Mg/2 Ml Syringe) 2.5 mg IVPUSH Q4H [facility] Last Admin: 02/28/21 08:48 Dose: 2.5 mg Documented by: Lidocaine HCl (Lidocaine 2% Viscous Solution 15 Ml Cup) 5 ml PO Q4H PRN PRN Reason: Pain Morphine Sulfate (Morphine 2 Mg/Ml Syringe) 2 mg IV Q1H PRN PRN Reason: Pain Last Admin: 02/27/21 09:02 Dose: 2 mg Documented by: Ondansetron HCl (Ondansetron 4 Mg/2 Ml Sdv) 4 mg IVPUSH Q4H PRN PRN Reason: Nausea Senna/Docusate Sodium (Docusate Sodium/Sennosides 50-8.6 Mg Tab) 1 tab PO QID PRN PRN Reason: Constipation Sodium Chloride (Sodium Chloride 0.9% 10 Ml Syringe) 10 ml FLUSH ASDIRECTED PRN PRN Reason: Keep Vein Open Discontinued Medications Ceftriaxone Sodium (Ceftriaxone 2 Gm Vial) 2 gm IVPUSH ONETIME ONE Stop: 02/25/21 13:17 Last Admin: 02/25/21 14:14 Dose: 2 gm Documented by: Diazepam (Diazepam 10 Mg/2 Ml Syringe) 2.5 mg IVPUSH ONETIME ONE Stop: 02/26/21 08:10 Last Admin: 02/26/21 08:41 Dose: 2.5 mg Documented by: Famotidine (Famotidine 20 Mg/2 Ml Sdv) 40 mg IVPUSH ONETIME ONE Stop: 02/25/21 11:14 Last Admin: 02/25/21 11:20 Dose: 40 mg Documented by: Furosemide (Furosemide 40 Mg/4 Ml Vial) 60 mg IVPUSH NOW ONE Stop: 02/26/21 08:11 Last Admin: 02/26/21 08:43 Dose: 60 mg Documented by: Furosemide (Furosemide 40 Mg/4 Ml Vial) 40 mg IVPUSH Q8H [facility] Lactated Ringer's (Ringers, Lactated) 1,000 mls @ 999 mls/hr IV .BOLUS ONE Stop: 02/25/21 14:16 Last Admin: 02/25/21 14:15 Dose: 999 mls/hr Documented by: Vancomycin HCl 1 gm/ Sodium (Chloride) 250 mls @ 165 mls/hr IV Q24H [facility] Last Admin: 02/25/21 17:40 Dose: 165 mls/hr Documented by: Lactated Ringer's (Ringers, Lactated) 1,000 mls @ 100 mls/hr IV ASDIRECTED [facility] Last Admin: 02/25/21 21:02 Dose: 100 mls/hr Documented by: Ceftriaxone Sodium 1 gm/ (Sodium Chloride) 100 mls @ 200 mls/hr IV Q12H [facility] Last Admin: 02/26/21 00:34 Dose: 200 mls/hr Documented by: Metronidazole 500 mg/ Premix 100 mls @ 100 mls/hr IV Q8H [facility] Last Admin: 02/26/21 11:01 Dose: Not Given Documented by: Norepinephrine Bitartrate 4 mg (/ Dextrose/Water) 250 mls @ 7.5 mls/hr IV TITRATE [facility]; Protocol Potassium Chloride 10 meq/ (Premix) 50 mls @ 50 mls/hr IV Q1H [facility] Stop: 02/26/21 16:59 Last Admin: 02/26/21 11:02 Dose: Not Given Documented by: Sodium Chloride (Normal Saline) 1,000 mls @ 50 mls/hr IV ASDIRECTED [facility] Last Admin: 02/26/21 08:47 Dose: 50 mls/hr Documented by: Levetiracetam 500 mg/ Sodium (Chloride) 105 mls @ 400 mls/hr IV Q12H [facility] Last Admin: 02/26/21 08:46 Dose: 400 mls/hr Documented by: Iopamidol (Iopamidol 755 Mg/Ml 100 Ml Bottle) 100 ml IVPUSH ONETIME ONE Stop: 02/25/21 12:31 Last Admin: 02/25/21 12:42 Dose: 100 ml Documented by: Sodium Chloride (Sodium Chloride 0.9% 10 Ml Syringe) 10 ml FLUSH ASDIRECTED PRN PRN Reason: Keep Vein Open Last Admin: 02/27/21 18:13 Dose: 10 ml Documented by: Sodium Chloride (Sodium Chloride 0.9% 10 Ml Syringe) 10 ml FLUSH ASDIRECTED PRN PRN Reason: Keep Vein Open Sodium Chloride (Sodium Chloride 0.9% 10 Ml Syringe) 10 ml FLUSH Q12HR PRN PRN Reason: Keep Vein Open Vancomycin HCl (Pharmacy To Dose - Vancomycin) 1 dose .XX ASDIRECTED [facility] - Exam Quality Assessment: Reports: Supplemental Oxygen General: Reports: Obtunded, Other (unresponsive) HEENT: Reports: Other (Pupils 2 mm, non-reactive) Neck: Reports: Supple Lungs: Reports: Normal Respiratory Effort, Rales, Rhonchi Cardiovascular: Reports: Regular Rate, Regular Rhythm GI/Abdominal Exam: No Distention, No Mass (Male) Exam: Deferred Rectal (Males) Exam: Deferred Extremities: Normal Inspection, No Pedal Edema, Normal Capillary Refill Skin: Reports: Warm, Dry, Intact Neurological: Reports: No New Focal Deficit Psy/Mental Status: Reports: Other (unresponsive)
== END 2021-02-28 11:55 | DRG 951 ==
LOC: LL.ED 11:11 → LL.MS 14:11
PROVIDERS: ADMIT Family Medicine; ATTEND Family Medicine
DX: Z51.5 Encounter for palliative care (principal); E87.2 Acidosis; D69.3 Immune thrombocytopenic purpura; J40 Bronchitis, not specified as acute or chronic; J44.0 Chronic obstructive pulmonary disease with (acute) lower respiratory infection; R41.89 Other symptoms and signs involving cognitive functions and awareness; R79.89 Other specified abnormal findings of blood chemistry; I45.10 Unspecified right bundle-branch block; R74.8 Abnormal levels of other serum enzymes; I44.0 Atrioventricular block, first degree; E88.09 Other disorders of plasma-protein metabolism, not elsewhere classified; F09 Unspecified mental disorder due to known physiological condition; E03.9 Hypothyroidism, unspecified; I49.3 Ventricular premature depolarization; J44.9 Chronic obstructive pulmonary disease, unspecified; Z79.82 Long term (current) use of aspirin; Z79.890 Hormone replacement therapy; Z79.899 Other long term (current) drug therapy; G20 Parkinson's disease; D64.9 Anemia, unspecified; I50.9 Heart failure, unspecified; D70.9 Neutropenia, unspecified; K59.09 Other constipation; N40.1 Benign prostatic hyperplasia with lower urinary tract symptoms; N39.498 Other specified urinary incontinence; M19.90 Unspecified osteoarthritis, unspecified site; E11.9 Type 2 diabetes mellitus without complications; E53.8 Deficiency of other specified B group vitamins; I95.9 Hypotension, unspecified; Z20.822 Contact with and (suspected) exposure to COVID-19; Z96.652 Presence of left artificial knee joint; Z95.5 Presence of coronary angioplasty implant and graft; Z95.1 Presence of aortocoronary bypass graft
CPT/HCPCS: 36415; 51702; 70450; 71045; 71275; 80053; 80061; 81001; 82550; 82553; 83036; 83605; 83735; 83880; 84443; 84484; 84550; 85025; 85379; 85610; 85730; 87040; 87086; 93005; 93010; 96374; 96375; 99223; 99232; 99233; 99238; 99285-25; A9270-GY; J0696; J1940; J1953; J2270; J3360; J3370; J3480; J3490; J7030; J7050; J7120; Q9967; U0002